=== PATIENT | male | born 1960 | race Two or more races ===

== ENCOUNTER → 2017-02-22 | Outpatient (REF) | payer OTHER ==
[2017-02-22 11:51] LABS: MEAN CORPUSCULAR HEMOGLOBIN 30.8 pg (27.0-33.0); MEAN CORPUSCULAR HGB CONC 34.2 g/dl (32.0-36.5); PLATELET COUNT, AUTOMATED 234 10^3/uL (150-450); RED CELL DISTRIBUTION WIDTH 13.7 % (11.5-14.5); WHITE BLOOD COUNT 6.8 10^3/uL (4.0-10.0)
[2017-02-22 12:29] LABS: ALBUMIN 3.7 GM/DL (3.2-5.2); ALKALINE PHOSPHATASE 59 U/L (45-117); ALT/SGPT 28 U/L (12-78); ANION GAP 5 MEQ/L (8-16); AST/SGOT 21 U/L (7-37); BILIRUBIN,TOTAL 0.6 MG/DL (0.2-1.0); BLOOD UREA NITROGEN 14 MG/DL (7-18); CALCIUM LEVEL 8.7 MG/DL (8.5-10.1); CARBON DIOXIDE LEVEL 29 MEQ/L (21-32); CHLORIDE LEVEL 106 MEQ/L (98-107); CHOLESTEROL LEVEL 208 MG/DL (<200); CREATININE FOR GFR 0.83 MG/DL (0.70-1.30); GLOMERULAR FILTRATION RATE > 60.0 (>56); GLUCOSE, FASTING 94 MG/DL (70-105); POTASSIUM SERUM 4.4 MEQ/L (3.5-5.1); SODIUM LEVEL 140 MEQ/L (136-145); TOTAL PROTEIN 7.4 GM/DL (6.4-8.2); TRIGLYCERIDES LEVEL 164 MG/DL (<150)
== END ==
LOC: M SFHCLERA 10:11
PROVIDERS: ATTEND Family Medicine
DX: Z68.41 Body mass index [BMI] 40.0-44.9, adult (principal)

== ENCOUNTER → 2018-02-01 | Outpatient (CLI) | payer SELFPAY | LOC: M OUTALCOH 08:23 | DX: Z13.9 Encounter for screening, unspecified (principal); F10.10 Alcohol abuse, uncomplicated ==

== ENCOUNTER 2018-02-19 07:56 | Outpatient (RCR) | payer SELFPAY | END 2018-03-04 | LOC: M OUTALCOH 07:56 | PROVIDERS: ATTEND Psychiatry & Neurology Psychiatry | DX: F10.10 Alcohol abuse, uncomplicated (principal); F17.200 Nicotine dependence, unspecified, uncomplicated ==

== ENCOUNTER 2018-04-02 16:00 | Outpatient (RCR) | payer OTHER, SELFPAY | END 2018-04-04 | LOC: M OUTALCOH 16:00 | PROVIDERS: ATTEND Psychiatry & Neurology Psychiatry | DX: F10.10 Alcohol abuse, uncomplicated (principal); F17.200 Nicotine dependence, unspecified, uncomplicated ==

== ENCOUNTER → 2018-05-02 | Outpatient (RCR) | payer OTHER, SELFPAY | LOC: M OUTALCOH 04-05 15:47 | PROVIDERS: ATTEND Psychiatry & Neurology Psychiatry | DX: F10.10 Alcohol abuse, uncomplicated (principal); F17.200 Nicotine dependence, unspecified, uncomplicated ==

== ENCOUNTER 2018-05-06 09:45 | Outpatient (RCR) | payer OTHER, SELFPAY | END 2018-06-02 | LOC: M OUTALCOH 09:45 | PROVIDERS: ATTEND Psychiatry & Neurology Psychiatry | DX: F10.10 Alcohol abuse, uncomplicated (principal); F17.200 Nicotine dependence, unspecified, uncomplicated ==

== ENCOUNTER → 2018-07-23 | Outpatient (CLI) | payer OTHER ==
[2018-07-23 09:07] LABS: HEMATOCRIT 49.5 % (42.0-52.0); MEAN CORPUSCULAR HEMOGLOBIN 31.9 pg (27.0-33.0); MEAN CORPUSCULAR HGB CONC 34.3 g/dl (32.0-36.5); MEAN CORPUSCULAR VOLUME 92.9 fl (80.0-96.0); PLATELET COUNT, AUTOMATED 238 10^3/uL (150-450); RED BLOOD COUNT 5.33 10^6/uL (4.30-6.10); WHITE BLOOD COUNT 6.7 10^3/uL (4.0-10.0)
[2018-07-23 09:40] LABS: ALBUMIN 3.8 GM/DL (3.2-5.2); ALT/SGPT 20 U/L (12-78); BILIRUBIN,TOTAL 0.3 MG/DL (0.2-1.0); BLOOD UREA NITROGEN 16 MG/DL (7-18); CARBON DIOXIDE LEVEL 24 MEQ/L (21-32); CHLORIDE LEVEL 109 MEQ/L (98-107); CHOLESTEROL LEVEL 239 MG/DL (<200); CHOLESTEROL RISK RATIO 3.793 (<5); CREATININE FOR GFR 0.95 MG/DL (0.70-1.30); GLOMERULAR FILTRATION RATE > 60.0 (>56); GLUCOSE, FASTING 95 MG/DL (70-100); HDL CHOLESTEROL 63 MG/DL (>40); LDL CHOLESTEROL 133 MG/DL (<100); NON-HDL-C 176 MG/DL; POTASSIUM SERUM 4.2 MEQ/L (3.5-5.1); SODIUM LEVEL 142 MEQ/L (136-145); TOTAL PROTEIN 7.3 GM/DL (6.4-8.2); TRIGLYCERIDES LEVEL 216 MG/DL (<150)
== END ==
LOC: M LAB 08:12
PROVIDERS: ATTEND Nurse Practitioner Adult Health
DX: Z00.00 Encounter for general adult medical examination without abnormal findings (principal); E78.5 Hyperlipidemia, unspecified; Z12.5 Encounter for screening for malignant neoplasm of prostate

== ENCOUNTER 2018-09-09 10:55 | Day surgery (SDC) | payer OTHER ==
[~2018-09-09] VITALS: Ht 180.3 cm; Wt 98.9 kg
[~2018-09-09 10:55] MED LIST: LIDOCAINE 1% MDV 20ML VIAL SQ PRN; LR 1,000 ML IV ONE
[2018-09-09] MEDS ORDERED: BUPIVACAINE/EPIN 0.25% 30 ML VIAL As Ordered ONE ×2 (12:01→14:59)
[2018-09-09] MEDS ORDERED: GLYCOPYRROLATE INJ 0.2 MG/ML 2 ML VIAL As Ordered ONE (12:30)
[2018-09-09] MEDS ORDERED: KETOROLAC 60 MG/2 ML VIAL (J1885) As Ordered ONE (12:38)
[2018-09-09] MEDS ORDERED: PROPOFOL 200 MG/20 ML VIAL As Ordered ONE (12:38)
[2018-09-09] MEDS ORDERED: MIDAZOLAM INJ 2 MG/2 ML VIAL (J2250) As Ordered ONE (12:38)
[2018-09-09] MEDS ORDERED: SUGAMMADEX SODIUM 500 MG/5 ML VIAL (BRIDION) As Ordered ONE (12:38)
[2018-09-09] MEDS ORDERED: fentaNYL 250 MCG/5 ML INJECTION (J3010) As Ordered ONE (12:38)
[2018-09-09] MEDS ORDERED: dexameTHASONE 4 MG/ML 1ML VIAL (J1100) As Ordered ONE (12:38)
[2018-09-09] MEDS ORDERED: ONDANSETRON 4MG/2ML VIAL (J2405) As Ordered ONE (12:38)
[2018-09-09] MEDS ORDERED: LIDOCAINE 2% INJ 100 MG/5 ML SDV (FOR ANES.) As Ordered ONE (12:38)
[2018-09-09] MEDS ORDERED: METOCLOPRAMIDE INJ 10MG/2ML VIAL (J2765) As Ordered ONE (12:38)
[2018-09-09] MEDS ORDERED: ACETAMINOPHEN 1000MG 100ML IV BTL (OFIRMEV) (J0131 PER 10MG) As Ordered ONE (12:38)
[2018-09-09] MEDS ORDERED: ROCURONIUM BROMIDE 50 MG/5 ML VIAL As Ordered ONE (12:38)
[2018-09-09] MEDS ORDERED: PERCOCET 5MG/325MG TAB As Ordered ONE (13:10)
[2018-09-09] MEDS ORDERED: fentaNYL 100 MCG/2 ML INJECTION (J3010) As Ordered ONE (13:10)
[2018-09-09] MEDS: fentaNYL 100 MCG/2 ML INJECTION (J3010) IV PRN ×2 (13:10→13:17)
[2018-09-09] MEDS ORDERED: MORPHINE 10 MG/ML 1ML VIAL (J2270) IV PRN (13:30)
[2018-09-09] MEDS ORDERED: NORCO, ANEXSIA 5/325MG TABLET (HYDROcodone/ACETAMINOPHEN) PO PRN (13:30)
[2018-09-09] MEDS ORDERED: PERCOCET 5MG/325MG TAB PO PRN (13:30)
[2018-09-09] MEDS ORDERED: ONDANSETRON 4MG/2ML VIAL (J2405) IV PRN (13:30)
[2018-09-09] MEDS ORDERED: LR 1,000 ML IV SCH (13:30)
[2018-09-09] MEDS ORDERED: METOCLOPRAMIDE INJ 10MG/2ML VIAL (J2765) IV PRN (13:30)
--- NOTE | 2018-09-09 13:36 | RO ---
DATE OF PROCEDURE: 09/09/2018 PREOPERATIVE DIAGNOSIS: Umbilical hernia. POSTOPERATIVE DIAGNOSIS: Umbilical hernia. PROCEDURE: Laparoscopic umbilical hernia repair. SURGEON: Dr. Saldana MANAGER FORMS: None. ANESTHESIA: General. ESTIMATED BLOOD LOSS: 5. COMPLICATIONS: None. INDICATIONS FOR PROCEDURE: The patient is a 58-year-old male who presents with pain and a lump at the umbilicus found to have umbilical hernia. Recommendation is to proceed with laparoscopic repair. Risks and benefits the procedure not limited but including bleeding, infection, hernia formation, hernia recurrence, damage to surrounding structures, need for further surgery were discussed in detail with the patient. Informed consent was obtained and procedure was planned. DESCRIPTION OF PROCEDURE: The patient brought back to operating room #3. After sufficient sedation, the abdomen was sterilely prepped and draped. Next, time-out was done to confirm proper patient and proper procedure. Following that a 5 mm incision made in left lower quadrant. Veress needle inserted and the abdomen was insufflated to 50 mmHg. Next, the Veress needle was removed and a 5 mm Optiview port was used to gain access to the abdomen. Once the abdomen was entered, an umbilical hernia was identified. Another 5 mm port was placed in the left lower quadrant. Next, using Enseal the omentum that was adhered into the hernial sac was removed. Next, the preperitoneal space was entered using the Enseal and dissected free along with the hernia sac. Once this was all completed, a Parietex composite mesh and a Vicryl suture was placed in all four corners, placed inside the abdomen. Transfascial sutures were brought out through the abdominal wall using Matt-Watts needle and tied in place. Then, two rows SecureStrap tacks were placed around the perimeter of mesh to hold it in place. Once this was completed, the abdomen was desufflated. Skin incisions were closed #4-0 Vicryl subcuticular sutures. The abdomen was cleaned and dried. Steri-Strips, 4 x 4, and tape were applied thus ending procedure.
[2018-09-09 15:01] VITALS: BP 140/72
== END 2018-09-09 15:15 | disposition home or self-care (01) ==
LOC: M SDC 10:55
PROVIDERS: ATTEND Surgery
DX: K42.9 Umbilical hernia without obstruction or gangrene (principal); F17.210 Nicotine dependence, cigarettes, uncomplicated; Z79.899 Other long term (current) drug therapy
CPT/HCPCS: 49652; C1781; J0131; J0690; J1100; J1885; J2250; J2405; J2765; J3010

== ENCOUNTER → 2018-09-16 | Outpatient (CLI) | payer OTHER ==
--- NOTE | 2018-09-16 17:11 | REP ---
CT chest without contrast: Low-dose screening exam. History: Tobacco use. No comparison study. CT findings: There is a 3 mm perifissural nodule along the major fissure in the left lower lobe on page 55 of 116 in today's study. A subpleural 3 mm nodule is also visible posteriorly in the right upper lobe seen on page 29. No other significant pulmonary nodule is appreciated. Impression: Lung RADS category II benign findings. Repeat screening exam suggested in 1 year. Electronically Signed by Alan Sotomayor MD 09/17/2018 07:45 A
== END ==
LOC: M RAD 14:59
PROVIDERS: ATTEND Internal Medicine
DX: R91.1 Solitary pulmonary nodule (principal); F17.200 Nicotine dependence, unspecified, uncomplicated

== ENCOUNTER 2019-05-26 19:56 | Emergency (ER) | payer OTHER, SELFPAY ==
[~2019-05-26] VITALS: Ht 177.8 cm; Wt 90.0 kg
--- NOTE | 2019-05-26 21:21 | REPVR ---
PROCEDURE INFORMATION: Exam: US Scrotum Exam date and time: 05/26/2019 9:04 PM Age: 59 years old Clinical indication: Scrotum pain; Additional info: Right testicular pain TECHNIQUE: Imaging protocol: Real-time ultrasound of the scrotum and contents with color Doppler and image documentation. COMPARISON: No relevant prior studies available. FINDINGS: Right testicle: Measures 4.0 x 2.2 x 3.3 cm. Right testicle is hypervascular. Testicular echotexture is very heterogeneous with several ill-defined hypoechoic areas. Left testicle: Measures 4.3 x 2.5 x 3.2 cm. 5 mm cyst in the central testicle. No solid masses are seen. Otherwise normal echotexture and morphology. Normal intra testicular blood flow. Epididymides: Right epididymis is enlarged and hypervascular. No masses are seen in the right epididymis. Small simple cysts measuring 1 mm and 2 mm are noted in the left epididymal head. Left epididymis is otherwise unremarkable. Scrotum: No mass, hydrocele, or varicocele. IMPRESSION: 1. Enlarged hyperemic right epididymis and hyperemic, heterogeneous right testicle suggesting epididymo-orchitis. Short-term follow-up is suggested to exclude other neoplastic or infiltrative process in the right testicle. 2. Small simple cyst in the left testicle. 3. No evidence of testicular torsion. Electronically signed by: Car Velasquez On 05/26/2019 21:21:14 PM
[2019-05-26] MEDS ORDERED: LEVA1TAB2 PO (21:54)
[2019-05-26] MEDS ORDERED: LevoFLOXacin 500 MG TABLET PO ONE (22:00)
[2019-05-26 22:06] VITALS: BP 156/82
--- NOTE | 2019-05-27 07:58 | REP ---
Clinical: Right groin pain. Technique: Single supine view of the abdomen and pelvis. Findings: The bowel gas pattern is nonspecific. There is a 3 x 8 mm calcification overlying the right psoas muscle just above the right L3 spinous process which is nonspecific but raise the possibility of ureteral stone. Skeletal structures are intact. Impression: 1. Nonspecific bowel gas pattern. 2. Possible 8 mm right ureteral calculus. Electronically Signed by Emigdio Galo MD 05/27/2019 07:50 A
--- NOTE | 2019-05-27 15:43 | ED PDOC ---
Post-Departure Follow-Up cole mercedes faxed formal read of scrotal us for fu Diana Álvarez MD May 27, 2019 15:43
== END 2019-05-26 22:07 | disposition home or self-care (01) ==
LOC: M ED 19:56
DX: N45.1 Epididymitis (principal); N45.2 Orchitis; N44.2 Benign cyst of testis; F12.10 Cannabis abuse, uncomplicated

== ENCOUNTER 2019-11-01 11:44 | Emergency (ER) | payer SELFPAY ==
[~2019-11-01] VITALS: Ht 177.8 cm; Wt 103.3 kg
[~2019-11-01 11:44] MED LIST changes: +LEVA1TAB2 PO; -LIDOCAINE 1% MDV 20ML VIAL SQ PRN; -LR 1,000 ML IV ONE
[2019-11-01] MEDS ORDERED: MORPHINE 4 MG/ML 1ML VIAL/SYRINGE (J2270) IV ONE (12:15)
[2019-11-01 12:31] LABS: BASO # 0.1 10^3/uL (0.0-0.2); BASO % 0.8 % (0.0-1.0); EOS # 0.2 10^3/uL (0.0-0.5); EOS % 1.8 % (0.0-3.0); HEMATOCRIT 48.6 % (42.0-52.0); HEMOGLOBIN 17.2 g/dl (13.5-17.5); LYMPH # 1.7 10^3/uL (1.5-5.0); LYMPH % 14.8 % (24.0-44.0); MEAN CORPUSCULAR HEMOGLOBIN 32.5 pg (27.0-33.0); MEAN CORPUSCULAR HGB CONC 35.4 g/dl (32.0-36.5); MEAN CORPUSCULAR VOLUME 91.9 fl (80.0-96.0); MONO # 0.9 10^3/uL (0.0-0.8); MONO % 7.7 % (0.0-5.0); NEUTROPHILS # 8.7 10^3/uL (1.5-8.5); NEUTROPHILS % 74.2 % (36.0-66.0); PLATELET COUNT, AUTOMATED 256 10^3/uL (150-450); RED BLOOD COUNT 5.29 10^6/uL (4.30-6.10); WHITE BLOOD COUNT 11.8 10^3/uL (4.0-10.0)
[2019-11-01 13:01] LABS: BLOOD UREA NITROGEN 15 MG/DL (7-18); CALCIUM LEVEL 9.4 MG/DL (8.5-10.1); CARBON DIOXIDE LEVEL 26 MEQ/L (21-32); CHLORIDE LEVEL 110 MEQ/L (98-107); CREATININE FOR GFR 1.24 MG/DL (0.70-1.30); GLOMERULAR FILTRATION RATE > 60.0 (>56); GLUCOSE, FASTING 102 MG/DL (70-100); POTASSIUM SERUM 3.9 MEQ/L (3.5-5.1); SODIUM LEVEL 143 MEQ/L (136-145)
[2019-11-01] MEDS ORDERED: KETOROLAC 30 MG/ML 1ML VIAL IV ONE (13:45)
[2019-11-01] MEDS ORDERED: KETO10TAB PO (15:20)
[2019-11-01] MEDS ORDERED: PERC5TAB12 PO (15:20)
[2019-11-01] MEDS ORDERED: CIPR-249 PO (15:20)
[2019-11-01 15:34] VITALS: BP 150/80
--- NOTE | 2019-11-28 13:40 | REP ---
SCROTAL ULTRASOUND CLINICAL: Scrotal pain. TECHNIQUE: Real-time perez scale and color Doppler evaluation using linear high frequency transducer. COMPARISON: 05/26/2019. FINDINGS: The right testicle and epididymis demonstrates subtle heterogeneity with normal vascularity likely related to prior epididymitis/orchitis as per findings on 05/26/2019. No right-sided hydrocele or varicocele. Right testicle measures 4.2 x 2.0 x 3.4 cm. The left testicle is normal in appearance and vascularity and measures 4.1 x 2.6 x 2.9 cm and includes 4-mm simple appearing, stable, benign intratesticular cyst and two small epididymal cysts measuring approximately 6 and 4 mm. A small left- sided hydrocele is again noted and similar to prior examination. IMPRESSION: * Right testicular changes likely related to resolved prior epididymitis/orchitis. * Stable left benign appearing intratesticular and epididymal cysts. * No acute scrotal pathology appreciated. [facility]
--- NOTE | 2019-11-28 13:41 | REP ---
NONCONTRAST CT OF THE ABDOMEN AND PELVIS CLINICAL: Right flank pain. TECHNIQUE: Axial noncontrast images from the lung bases to the pubic symphysis with coronal and sagittal reformations. FINDINGS: Moderate acute right-sided obstructive uropathy including edematous enlargement to the right kidney, moderate perinephric stranding, and hydronephrosis along with proximal hydroureter secondary to an obstructing 8 mm calculus in the proximal right ureter (images 71, 73). No further right intrarenal calculi. Left kidney/ureter and bladder appear normal. Liver, spleen, pancreas, gallbladder, and bilateral adrenal glands are normal. The enteric system is without obstruction or acute inflammatory process. Normal terminal ileum and appendix identified in the right lower quadrant. Pelvis demonstrates normal bladder and age-appropriate prostate/seminal vesicles. No ascites. No free air. No adenopathy. Abdominal aorta normal. Musculoskeletal structures intact. Lung bases clear. IMPRESSION: Moderate acute right-sided obstructive uropathy with 8 mm calculus obstructing the proximal right ureter. [facility]
== END 2019-11-01 15:36 | disposition home or self-care (01) ==
LOC: M ED 11:44
DX: N20.1 Calculus of ureter (principal); M54.9 Dorsalgia, unspecified; F17.200 Nicotine dependence, unspecified, uncomplicated
CPT/HCPCS: 36415; 74176; 76870; 80048; 81001; 85025; 93976; 96374; 99284; J1885

== ENCOUNTER → 2020-07-14 | Outpatient (REF) | payer OTHER ==
[~2020-07-14] MED LIST changes: +CIPR-249 PO; +KETO10TAB PO; +PERC5TAB12 PO
[2020-07-14 13:10] LABS: HEMOGLOBIN A1c 5.1 %
[2020-07-14 13:51] LABS: ALBUMIN 3.7 GM/DL (3.2-5.2); ALT/SGPT 24 U/L (12-78); BILIRUBIN,TOTAL 0.4 MG/DL (0.2-1.0); BLOOD UREA NITROGEN 15 MG/DL (7-18); CALCIUM LEVEL 9.1 MG/DL (8.8-10.2); CARBON DIOXIDE LEVEL 27 MEQ/L (21-32); CHLORIDE LEVEL 109 MEQ/L (98-107); CHOLESTEROL LEVEL 218 MG/DL (<200); CHOLESTEROL RISK RATIO 4.037 (<5); CREATININE FOR GFR 0.84 MG/DL (0.70-1.30); GLOMERULAR FILTRATION RATE > 60.0 (>49); GLUCOSE, FASTING 86 MG/DL (70-100); HDL CHOLESTEROL 54 MG/DL (>40); LDL CHOLESTEROL 96 MG/DL (<100); NON-HDL-C 164 MG/DL; POTASSIUM SERUM 4.6 MEQ/L (3.5-5.1); SODIUM LEVEL 142 MEQ/L (136-145); TOTAL PROTEIN 6.9 GM/DL (6.4-8.2); TRIGLYCERIDES LEVEL 338 MG/DL (<150)
== END ==
LOC: M SFHCPLAZ 08:30 → M SFHCADAM 08:35
PROVIDERS: ATTEND Nurse Practitioner Adult Health
DX: Z13.1 Encounter for screening for diabetes mellitus (principal); I10 Essential (primary) hypertension; E78.5 Hyperlipidemia, unspecified

== ENCOUNTER → 2020-07-14 | Outpatient (CLI) | payer OTHER ==
--- NOTE | 2020-07-14 10:11 | REP ---
INDICATION: LUMBAR PAIN COMPARISON: None. TECHNIQUE: AP, lateral, bilateral oblique, and coned-down views of the lumbar spine. FINDINGS: Alignment and lordosis maintained. Vertebral bodies are intact. No acute fracture/compression injury or subluxation. Moderate degenerative changes include endplate sclerosis with marginal spurring and hypertrophic facet changes primarily involving L2-3 through L5-S1. IMPRESSION: Moderate multilevel degenerative changes <Electronically signed by Emigdio Galo > 07/14/20 [id number]
--- NOTE | 2020-07-14 10:13 | REP ---
INDICATION: NECK PAIN. COMPARISON: None. TECHNIQUE: AP, lateral, flexion/extension, bilateral oblique, swimmer's and open-mouth views of the cervical spine FINDINGS: Alignment is maintained. Advanced multilevel degenerative changes include endplate sclerosis, disc space narrowing, osteophytosis and facet hypertrophy. Findings are most pronounced at the C3-4 and C5-6 levels. No acute fracture or dislocation. Open mouth view demonstrates normal C1-C2 articulation and odontoid process. IMPRESSION: Advanced multilevel degenerative spondylosis. <Electronically signed by Emigdio Galo > 07/14/20 [id number]
== END ==
LOC: M ADAMS 08:38
PROVIDERS: ATTEND Nurse Practitioner Adult Health
DX: M54.2 Cervicalgia (principal); M54.5 Low back pain

== ENCOUNTER 2020-07-20 10:42 | Inpatient (IN) | payer OTHER ==
[~2020-07-20] VITALS: Ht 177.8 cm; Wt 102.0 kg
[2020-07-20] MEDS ORDERED: VALS40TA9 PO (10:53)
--- NOTE | 2020-07-20 11:19 | REP ---
INDICATION: slurred speech, unilateral weakness. COMPARISON: None. TECHNIQUE: Helical scanning is acquired. 5 mm axial images were reformatted. Coronal MPR images were generated. 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 Bony calvarium is intact. There are mild mucosal thickening changes in the ethmoid air cells and maxillary sinuses bilaterally consistent with mild paranasal sinus disease. Vascular calcification is observed in the distal internal carotid arteries bilaterally. There is no evidence of intracranial hemorrhage. Lateral, 3rd, and 4th ventricles are normal in size and position. There are bilateral foci of periventricular white matter low-density in the frontal lobes and in the right parietal lobe. There is a low-density area involving the basal ganglia on the left. These are nonspecific. They may reflect chronic microvascular changes versus demyelinating foci versus is subacute lacunar infarction. Consider MRI scanning for further evaluation. No extra-axial fluid collection, mass, or midline shift is seen. IMPRESSION: Multifocal white matter low-density lesions, nonspecific as above. Consider further evaluation with MRI scanning. Paranasal sinus mucosal changes are also noted.. <Electronically signed by Kevin Sotomayor > 07/20/20 2351
[2020-07-20 12:19] LABS: HEMATOCRIT 49.3 % (42.0-52.0); HEMOGLOBIN 17.3 g/dl (13.5-17.5); MEAN CORPUSCULAR HGB CONC 35.1 g/dl (32.0-36.5); MEAN CORPUSCULAR VOLUME 94.1 fl (80.0-96.0); PLATELET COUNT, AUTOMATED 217 10^3/uL (150-450); RED BLOOD COUNT 5.24 10^6/uL (4.30-6.10); WHITE BLOOD COUNT 8.4 10^3/uL (4.0-10.0)
--- NOTE | 2020-07-20 12:26 | REP ---
INDICATION: CVA. COMPARISON: None. TECHNIQUE: Single portable AP view of the chest was performed. FINDINGS: There is no acute infiltrate or pulmonary edema. Lungs are clear. The heart is not significantly enlarged. The mediastinal silhouette is unremarkable. The visualized osseous structures are intact. IMPRESSION: No acute pulmonary disease. <Electronically signed by Jair Escobar > 07/20/20 [id number]
[2020-07-20 12:44] LABS: BLOOD UREA NITROGEN 14 MG/DL (7-18); CALCIUM LEVEL 9.1 MG/DL (8.8-10.2); CARBON DIOXIDE LEVEL 26 MEQ/L (21-32); CHLORIDE LEVEL 110 MEQ/L (98-107); CK-MB VALUE MASS < 1.0 NG/ML (<3.6); CPK CREATINE PHOSPHOKINASE 112 U/L (39-308); CREATININE FOR GFR 0.87 MG/DL (0.70-1.30); GLOMERULAR FILTRATION RATE > 60.0 (>49); GLUCOSE, FASTING 106 MG/DL (70-100); MB/CK RELATIVE INDEX 0.89 (< OR =4); POTASSIUM SERUM 4.2 MEQ/L (3.5-5.1); SODIUM LEVEL 141 MEQ/L (136-145); TROPONIN I < 0.02 NG/ML (< 0.10)
[2020-07-20 15:40] VITALS: BP 137/92
[2020-07-20] MEDS ORDERED: NICOTINE 21MG/24HR 1 EA TRANSDERMAL TD PRN (17:15)
[2020-07-20] MEDS ORDERED: ASPIRIN 81MG ENTERIC TABLET PO ONE (17:30)
[2020-07-20] MEDS ORDERED: ACETAMINOPHEN 500 MG TAB PO ONE (17:30)
--- NOTE | 2020-07-20 19:06 | HPEPDOC ---
General Date of Admission 07/20/20 Date of Service: July 20, 2020 Chief Complaint The patient is a 60-year-old male admitted with a reason for visit of Rt Side Pain/Numbness. Source: Patient, RN/MD History of Present Illness 60-year-old male with them, history of alcohol abuse and tobacco abuse, presented to the emergency room with persistent right-sided weakness which start ed on July 19 about 4 PM associated with the numbness and the right angle of the mouth and also headache. Patient reports that initially at about 4 PM both his right and left lower extremities suddenly became very weak and he could not stand up or walk. The left weakness lasted for about 5 minutes, but the right leg weakness lasted for about an hour, then it got a little better. However, at the right leg weakness came back at about 9 PM the stem also associated with headache and right upper extremity weakness and numbness of the right angle of the mouth. He went to bed thinking it would get better. However, at around 2 AM when he woke up to go to the bathroom, he realized that he couldn't walk. He had to crawl to the bathroom. He woke up this morning with persistent right-sided weakness and inability to walk, so came to the emergency room. . He also complains of daily headaches which she says is up. Part of his life so he doesn't pay much attention to it and when it is very severe he sees flashes of light at the periphery of the visual field Since yesterday, he has been having a headache, but it is not very bad as some of his others.. He was admitted for evaluation for off Cerebrovascular accident. Patient also reports that over the past year he has noticed episodes of sudden weakness of both of his lower extremities, which will last usually from a few seconds to one or 2 minutes and then get better by itself. He is in heavy alcohol drinker and admits to drinking a pint of whiskey a in 2 days. Home Medications Scheduled Valsartan (Valsartan) 40 Mg Tablet, 40 MG PO QHS, (Reported) Allergies Coded Allergies: No Known Allergies (Unverified , 05/26/19) Past Medical History Medical History PNEUMONIA X2 1999 FELL OFF A 40 FOOT EXTENSION LADDER BROKE ALL THE BONES IN HIS HANDS, HIT HIS HEAD, AND RIPPED MUSCLES ON HIS SIDE. 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 ) Drugs: denies A-FIB/CHADSVASC A-FIB History Current/History of A-Fib/PAF?: No Review of Systems Constitutional: Denies: Chills, Fever, Night Sweats Eyes: Denies: Pain, Vision change ENT: Reports: Head Aches; Denies: Dysphagia Skin: Denies: Rash, Lesions, Breakdown Pulmonary: Denies: Dyspnea, Cough Cardiovascular: Denies: Chest Pain, Palpitations, Orthopnea, Paroxysmal Noc. Dyspnea, Lt Headedness Gastrointestinal: Denies: Nausea, Vomiting, Abdominal Pain, Diarrhea Genitourinary: Denies: Dysuria, Frequency, Incontinence, Retention Neurological: Reports: Weakness, Numbness; Denies: Change in speech Physical Examination General Exam: Positive: Alert, Cooperative, No Acute Distress Eye Exam: Positive: PERRLA, Conjunctiva & lids normal, EOMI; Negative: Sclera icteric Neck Exam: Positive: Supple; Negative: JVD, thyromegaly Chest Exam: Positive: Clear to auscultation, Normal air movement Heart Exam: Positive: Bradycardic, Regular Rhythm, Normal S1, Normal S2; Negative: Murmurs, Rubs Telemetry: Positive: Sinus, Bradycardia Abdomen Exam: Positive: Normal bowel sounds, Soft; Negative: Tenderness, Hepatospenomegaly Extremity Exam: Negative: Clubbing, Cyanosis, Edema Neuro Exam: Positive: Normal Speech, Normal Tone (3/5 in right lower ex, 5/5 int eh left lower ex, 5/5 int he left upper ex, 3/5 inthe right upper extremit y.) Psych Exam: Positive: Memory Intact, Oriented x 3 Vital Signs Vital Signs Date Time Temp Pulse Resp B/P (MAP) Pulse Ox O2 Delivery O2 Flow Rate FiO2 07/20/20 13:00 125/71 (89) 07/20/20 12:45 51 16 95 Room Air 07/20/20 10:43 97.5 Laboratory Data Labs 24H Laboratory Tests 2 07/20/20 12:04: Nucleated Red Blood Cells % (auto) 0.0, Anion Gap 5L, Glomerular Filtration Rate > 60.0, Calcium Level 9.1, Total Creatine Kinase 112, Creatine Kinase MB < 1.0, Creatine Kinase MB Relative Index 0.89, Troponin I < 0.02 CBC/BMP Laboratory Tests 07/20/20 12:04 Microbiology Microbiology 07/20/20 Respiratory Virus Panel (PCR) ([facility]), Received Pending Assessment/Plan 60-year-old male with them, history of alcohol abuse and tobacco abuse, presented to the emergency room with persistent right-sided weakness which started on July 19 about 4 PM associated with the numbness and the right angle of the mouth and also headache. Patient reports that initially at about 4 PM both his right and left lower extremities suddenly became very weak and he could not stand up or walk. The left weakness lasted for about 5 minutes, but the right leg weakness lasted for about an hour, then it got a little better. However, the right leg weakness came back at about 9 PM this time associated with headache and right upper extremity weakness and numbness of the right angle of the mouth. He also complained of persistent headache. He was admitted for evaluation for off Cerebrovascular accident vs complicated migraine. Right-sided weakness CVA versus complicated migraine With persistent right-sided weakness and abnormal CT head Mitigated. MRI and MRA of brain. Was started on aspirin and Lipitor Will allow for permissive hypertension Hold valsartan Persistent and recurrent headaches Could be migraine Will give Tylenol and ibuprofen History of intermittent bilateral leg weakness Will get MRI of cervical spine Hypertriglyceridemia Started on atorvastatin Alcohol abuse Will watch for alcohol withdrawal Tobacco Abuse Nicotine patch Plan / VTE VTE Prophylaxis Ordered?: Yes SHAMIR MOROCHO MD July 20, 2020 13:31
[2020-07-20 20:00] VITALS: BP 134/91
--- NOTE | 2020-07-20 20:48 | ECGEPIP ---
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
[2020-07-20] MEDS ORDERED: IBUPROFEN 800 MG TAB PO SCH (21:00)
[2020-07-20] MEDS: ATORVASTATIN 20 MG TAB PO SCH (21:29)
[2020-07-20] MEDS: DOCUSATE SODIUM 100MG CAPSULE PO SCH (21:29)
--- NOTE | 2020-07-20 22:08 | REPVR ---
PROCEDURE INFORMATION: Exam: MR Head Without Contrast Exam date and time: 07/20/2020 8:38 PM Age: 60 years old Clinical indication: Walking, difficulty and weakness, extremity; Left; Patient HX: Lt sided weakness, difficulty walking; Additional info: Bilateral neuro symptoms, abn TECHNIQUE: Imaging protocol: MR of the head without contrast. COMPARISON: CT Head without contrast 07/20/2020 11:07 AM FINDINGS: Brain: Multiple foci of restricted diffusion are identified within the left basal ganglia and henderson radiata, consistent with acute infarcts. Additional foci of diffusion hyperintensity are noted within the left frontal lobe, consistent with acute or subacute infarcts. There is a focus of magnetic susceptibility associated with a left henderson radiata infarct concerning for hemorrhagic conversion. No acute hemorrhage is identified in this region on recent head CT images. There is an additional tiny focus of magnetic susceptibility blood products/hemosiderin within the right posterior frontal lobe. Several small chronic lacunar infarcts are visualized within the right cerebral white matter. There are scattered additional foci of FLAIR hyperintensity within the cerebral white matter. There is no mass effect or restricted diffusion associated with these foci. In a patient this age, this likely represents chronic small vessel ischemic disease. There is mild prominence of sulci, compatible with atrophy. For discussion of the intracranial arteries, refer to the MRA brain report. Cerebral ventricles: Asymmetry of the lateral ventricles, without hydrocephalus. Bones/joints: Unremarkable, as visualized. Paranasal sinuses: Mucosal thickening/effusions involving the maxillary sinuses, left side greater than right. Mucosal thickening of scattered ethmoid air cells, with minimal mucosal thickening of the frontal sinuses. Mastoid air cells: Mild effusions within right mastoid air cells. Minimal mucosal thickening/effusions within left mastoid air cells. Orbital cavity: Unremarkable. Soft tissues: Unremarkable, as visualized. IMPRESSION: 1. Multiple foci of restricted diffusion are identified within the left basal ganglia and henderson radiata, consistent with acute infarcts. Additional foci of diffusion hyperintensity are noted within the left frontal lobe, consistent with acute or subacute infarcts. 2. There is a focus of magnetic susceptibility associated with a left henderson radiata infarct concerning for hemorrhagic conversion. No acute hemorrhage is identified in this region on recent head CT images. 3. Several small chronic lacunar infarcts are visualized within the right cerebral white matter. 4. Mild additional white matter disease, likely representing chronic small vessel ischemic disease. 5. Mild atrophy. 6. Paranasal sinus disease. 7. Additional findings described above. Electronically signed by: Lester Nunez On 07/20/2020 22:07:05 PM
--- NOTE | 2020-07-20 22:22 | REPVR ---
PROCEDURE INFORMATION: Exam: MRA Head Without Contrast; Arteriography Exam date and time: 07/20/2020 8:38 PM Age: 60 years old Clinical indication: Patient HX: Lt sided weakness, difficulty walking; Additional info: Stroke TECHNIQUE: Imaging protocol: Magnetic resonance angiography head without contrast. Exam focused on the arteries. COMPARISON: CT Head without contrast 07/20/2020 11:07 AM FINDINGS: ANTERIOR CIRCULATION: Right internal carotid artery: Intracranial segment is patent with no significant stenosis. No aneurysm. Right middle cerebral artery: There is nonvisualization of the right middle cerebral artery, consistent with occlusion. Collateral vessels are identified adjacent to the region of the M1 segment. Right anterior cerebral artery: No occlusion or significant stenosis. No aneurysm. Left internal carotid artery: Intracranial segment is patent with no significant stenosis. No aneurysm. Left middle cerebral artery: Severe stenoses of M1 and M2 segments of the left middle cerebral artery, with near occlusion. Left anterior cerebral artery: No occlusion or significant stenosis. No aneurysm. POSTERIOR CIRCULATION: Right vertebral artery: A dominant right vertebral artery is identified. No significant stenosis or occlusion of the right vertebral artery, as visualized. Left vertebral artery: Severe stenosis of the distal left vertebral artery. Basilar artery: No occlusion or significant stenosis. No aneurysm. Right posterior cerebral artery: Mild stenoses involving the P2 segment of the right posterior cerebral artery. No aneurysm. Left posterior cerebral artery: Mild stenosis of the P2 segment of the left posterior cerebral artery. No aneurysm. IMPRESSION: 1. Occlusion of the right middle cerebral artery. Collateral vessels are identified adjacent to the region of the M1 segment. 2. Severe stenoses of M1 and M2 segments of the left middle cerebral artery, with near occlusion. 3. Severe stenosis of the distal left vertebral artery. 4. Bilateral BASS SINGER stenoses. 5. A dominant right vertebral artery is identified. Electronically signed by: Lester Nunez On 07/20/2020 22:22:11 PM
--- NOTE | 2020-07-20 22:41 | REPVR ---
PROCEDURE INFORMATION: Exam: MR Cervical Spine Without Contrast Exam date and time: 07/20/2020 8:38 PM Age: 60 years old Clinical indication: Patient HX: Lt sided weakness, difficulty walking; Additional info: Bilateral neuro symptoms, abn CT R/O ms TECHNIQUE: Imaging protocol: Multiplanar magnetic resonance images of the cervical spine without contrast. COMPARISON: DX SPINE CERVICAL COMPL 07/14/2020 8:26 AM FINDINGS: Vertebrae: The cervical vertebral bodies are normal in height. Slight reversal of the lordotic curvature of the cervical spine. Mild retrolisthesis of C3 on C4. Spinal cord: Motion artifact limits evaluation of the cervical spinal cord, without definitive cervical spine edema. This limits evaluation for intramedullary lesions, although an intramedullary lesion is not well-defined. Multilevel findings: Degenerative disc disease is noted at multiple cervical levels, with disc bulge/osteophyte complexes. C2-C3: There is no significant narrowing of the thecal sac or neural foramina. C3-C4: There is a mild decrease in disc height at C3-C4. Edema is identified within the C3-C4 disc and adjacent bone marrow. The endplates appear intact. These findings are likely reactive to degenerative change. Infection is within the differential. Disc bulging visualized, with mild spinal canal stenosis. Moderate bilateral neural foraminal narrowing, with uncovertebral hypertrophy. C4-C5: Disc bulging visualized, with minimal spinal canal stenosis. Mild right and moderate left neural foraminal narrowing, with uncovertebral hypertrophy. C5-C6: Disc bulging visualized, with minimal to mild spinal canal stenosis. Mild bilateral neural foraminal narrowing, with uncovertebral hypertrophy. C6-C7: No significant spinal canal stenosis. Suggested small perineural cysts within the neural foramina. C7-T1: There is no significant narrowing of the thecal sac or neural foramina. Soft tissues: No significant prevertebral soft tissue swelling. Vertebral arteries: Expected flow voids in the vertebral arteries. IMPRESSION: 1. Slight reversal of the lordotic curvature of the cervical spine. Mild retrolisthesis of C3 on C4. 2. Motion artifact limits evaluation for intramedullary lesions, although an intramedullary lesion is not well-defined. 3. Degenerative changes are noted at multiple cervical levels, as described above. 4. Edema is identified within the C3-C4 disc and adjacent bone marrow. These findings are likely reactive to degenerative change. Infection is within the differential. Clinical correlation recommended. 5. Mild spinal canal stenosis at C3-C4, with minimal to mild spinal canal stenosis at C5-C6, and minimal spinal canal stenosis at C4-C5. 6. Neural foraminal narrowing visualized from C3-C4 through C5-C6. 7. Additional findings described above. Electronically signed by: Lester Nunez On 07/20/2020 22:40:44 PM
--- NOTE | 2020-07-20 23:28 | IPNPDOC ---
Text Note Date of Service The patient was seen on 07/20/20. NOTE I discussed the findings of "... a left henderson radiata infarct concerning for hemorrhagic conversion" on MRI of the brain that were not see on CT of the brain with . We will dc the ASA, Lovenox and Ibuprofen, and repeat the CT of the head in the morning and ask the day time hospitalist to follow up on the results prior to deciding whether to resume the blood thinners. VS,Fishbone, I+O VS, Fishbone, I+O Laboratory Tests 07/20/20 12:04 Vital Signs Date Time Temp Pulse Resp B/P (MAP) Pulse Ox O2 Delivery O2 Flow Rate FiO2 07/20/20 20:00 96.9 62 18 134/91 (105) 94 Room Air HILARY DELEON MD July 20, 2020 23:28
[2020-07-21] VITALS: BP 124/60
[2020-07-21 04:00] VITALS: BP 131/68
[2020-07-21 05:44] LABS: BASO # 0.1 10^3/uL (0.0-0.2); BASO % 0.7 % (0.0-1.0); EOS # 0.3 10^3/uL (0.0-0.5); EOS % 4.6 % (0.0-3.0); HEMOGLOBIN 16.2 g/dl (13.5-17.5); LYMPH # 2.3 10^3/uL (1.5-5.0); LYMPH % 32.4 % (24.0-44.0); MEAN CORPUSCULAR HEMOGLOBIN 31.9 pg (27.0-33.0); MEAN CORPUSCULAR HGB CONC 33.8 g/dl (32.0-36.5); MEAN CORPUSCULAR VOLUME 94.5 fl (80.0-96.0); MONO # 0.7 10^3/uL (0.0-0.8); MONO % 10.4 % (2.0-8.0); NEUTROPHILS # 3.6 10^3/uL (1.5-8.5); NEUTROPHILS % 51.1 % (36.0-66.0); PLATELET COUNT, AUTOMATED 196 10^3/uL (150-450); RED BLOOD COUNT 5.08 10^6/uL (4.30-6.10); WHITE BLOOD COUNT 7.1 10^3/uL (4.0-10.0)
[2020-07-21 06:11] LABS: BLOOD UREA NITROGEN 17 MG/DL (7-18); CALCIUM LEVEL 8.5 MG/DL (8.8-10.2); CARBON DIOXIDE LEVEL 27 MEQ/L (21-32); CHLORIDE LEVEL 111 MEQ/L (98-107); CHOLESTEROL LEVEL 191 MG/DL (<200); CHOLESTEROL RISK RATIO 4.547 (<5); CREATININE FOR GFR 0.92 MG/DL (0.70-1.30); GLOMERULAR FILTRATION RATE > 60.0 (>49); GLUCOSE, FASTING 100 MG/DL (70-100); HDL CHOLESTEROL 42 MG/DL (>40); LDL CHOLESTEROL 110 MG/DL (<100); NON-HDL-C 149 MG/DL; SODIUM LEVEL 142 MEQ/L (136-145); TRIGLYCERIDES LEVEL 196 MG/DL (<150)
--- NOTE | 2020-07-21 06:22 | REPVR ---
PROCEDURE INFORMATION: Exam: CT Head Without Contrast Exam date and time: 07/21/2020 7:00 AM Age: 60 years old Clinical indication: Other: F/u; Additional info: F/u on possible hemorrhagic conversion TECHNIQUE: Imaging protocol: Computed tomography of the head without contrast. Radiation optimization: All CT scans at this facility use at least one of these dose optimization techniques: automated exposure control; mA and/or kV adjustment per patient size (includes targeted exams where dose is matched to clinical indication); or iterative reconstruction. COMPARISON: 1. CT Head without contrast 2020-07-20 11:07 2. MRI-Brain without Contrast 2020-07-20 20:25 FINDINGS: Brain: Recently identified acute infarcts on the MRI are very difficult to identify by CT on this study. Unchanged left anterior basal ganglia large lacunar infarct. Cerebral ventricles: No ventriculomegaly. Bones/joints: Unremarkable. No acute fracture. Paranasal sinuses: Visualized sinuses are unremarkable. No fluid levels. Mastoid air cells: Visualized mastoid air cells are well aerated. Soft tissues: Unremarkable. IMPRESSION: 1. No visualized hemorrhage. 2. Recently identified acute infarcts on the MRI are very difficult to identify by CT on this study. Electronically signed by: Willy England On 07/21/2020 06:22:08 AM
[2020-07-21] MEDS ORDERED: ACETAMINOPHEN TAB 650MG DOSE (2X325MG) PO PRN (07:30)
[2020-07-21 08:00] VITALS: BP 146/86
[2020-07-21] MEDS: ASPIRIN 81MG ENTERIC TABLET PO SCH (08:11)
[2020-07-21] MEDS: DOCUSATE SODIUM 100MG CAPSULE PO SCH ×2 (08:11→21:39)
[2020-07-21] MEDS ORDERED: ENOXAPARIN 40MG/0.4ML SYRINGE (J1650 PER 10MG) SC SCH (09:00)
[2020-07-21] MEDS ORDERED: ASPIRIN 81MG ENTERIC TABLET PO SCH (09:00)
--- NOTE | 2020-07-21 10:51 | IPNPDOC ---
Subjective Date Seen The patient was seen on 07/21/20. Subjective Chief Complaint/HPI Patient reports that the weakness on the right is a little better. Objective Physical Examination General Exam: Positive: Alert, Cooperative, No Acute Distress Eye Exam: Positive: PERRLA, Conjunctiva & lids normal, EOMI; Negative: Sclera icteric Neck Exam: Positive: Supple; Negative: JVD, thyromegaly Chest Exam: Positive: Clear to auscultation, Normal air movement Heart Exam: Positive: Bradycardic, Regular Rhythm, Normal S1, Normal S2; Negative: Murmurs, Rubs Telemetry: Positive: Sinus, Bradycardia Abdomen Exam: Positive: Normal bowel sounds, Soft; Negative: Tenderness, Hepatospenomegaly Extremity Exam: Negative: Clubbing, Cyanosis, Edema Neuro Exam: Positive: Normal Speech, Normal Tone (3/5 in right lower ex, 5/5 int eh left lower ex, 5/5 int he left upper ex, 3/5 inthe right upper extremity.) Psych Exam: Positive: Memory Intact, Oriented x 3 Assessment /Plan Assessment 60-year-old male with them, history of alcohol abuse and tobacco abuse, p resented to the emergency room with persistent right-sided weakness which started on July 19 about 4 PM associated with the numbness and the right angle of the mouth and also headache. Patient reports that initially at about 4 PM both his right and left lower extremities suddenly became very weak and he could not stand up or walk. The left weakness lasted for about 5 minutes, but the right leg weakness lasted for about an hour, then it got a little better. However, the right leg weakness came back at about 9 PM this time associated with headache and right upper extremity weakness and numbness of the right angle of the mouth. He also complained of persistent headache. He was admitted for evaluation of Cerebrovascular accident vs complicated migraine. MRI of brain showed acute left basal ganglia and left henderson radiata infarct. Left sided acute cerebral infarction with right hemiparesis. Multiple areas affected. the left basal ganglia and henderson radiata and left frontal lobe, Also has chronic lacunar infarcts on the right cerebrum. Diffuse chronic small vessel ischemic disease. 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 Collateral vessels are identified adjacent to the region of the M1 segment. Severe stenoses of M1 and M2 segments of the left middle cerebral artery, with near occlusion. Severe stenosis of the distal left vertebral artery. Bilateral P CA stenoses. Will allow for permissive hypertension Hold valsartan PT/OT/Swallow eval Repeat CT scan on 07/21/20 did not show any hemorrhagic conversion. Persistent and recurrent headaches Could be migraine vs ischemia tylenol. History of intermittent bilateral leg weakness MRI of cervical spine some cervical degenerative disc disease. Hypertriglyceridemia Started on atorvastatin Alcohol abuse Will watch for alcohol withdrawal counselled about quitting drinking. Tobacco Abuse Nicotine patch counselled about quitting smoking. Plan/VTE VTE Prophylaxis Ordered?: Yes VS, I&O, 24H, Fishbone Vital Signs/I&O Vital Signs Date Time Temp Pulse Resp B/P (MAP) Pulse Ox O2 Delivery O2 Flow Rate FiO2 07/21/20 08:00 96.9 58 18 146/86 (106) Room Air 07/21/20 04:00 93 I&O- Last 24 Hours up to 6 AM 07/21/20 06:00 Intake Total 470 ml Output Total 400 ml Balance 70 ml Laboratory Data 24H LABS Laboratory Tests 2 07/20/20 12:04: Nucleated Red Blood Cells % (auto) 0.0, Anion Gap 5L, Glomerular Filtration Rate > 60.0, Calcium Level 9.1, Total Creatine Kinase 112, Creatine Kinase MB < 1.0, Creatine Kinase MB Relative Index 0.89, Troponin I < 0.02 07/21/20 05:26: Nucleated Red Blood Cells % (auto) 0.0, Anion Gap 4L, Glomerular Filtration Rate > 60.0, Calcium Level 8.5L, Immature Granulocyte % (Auto) 0.8, Neutrophils (%) (Auto) 51.1, Lymphocytes (%) (Auto) 32.4, Monocytes (%) (Auto) 10.4H, Eosinophils (%) (Auto) 4.6H, Basophils (%) (Auto) 0.7, Neutrophils # (Auto) 3.6, Lymphocytes # (Auto) 2.3, Monocytes # (Auto) 0.7, Eosinophils # (Auto) 0.3, Basophils # (Auto) 0.1, Triglycerides Level 196H, Total Cholesterol 191, LDL Cholesterol 110H, Non-HDL Cholesterol (LDL + VLDL) 149, Total HDL Cholesterol 42, Cholesterol/HDL Ratio 4.547 CBC/BMP Laboratory Tests 07/20/20 12:04 07/21/20 05:26 Microbiology Microbiology 07/20/20 Respiratory Virus Panel (PCR) ([facility]) - Final, Complete SHAMIR MOROCHO MD July 21, 2020 10:51
[2020-07-21 12:00] VITALS: BP 140/76
[2020-07-21 16:00] VITALS: BP 136/80
--- NOTE | 2020-07-21 18:39 | REP ---
INDICATION: stroke COMPARISON: None. TECHNIQUE: Real-time ultrasound evaluation and duplex Doppler interrogation of the extracranial carotid vasculature is performed. FINDINGS: There is mild to moderate plaquing and narrowing in both carotid bulbs extending into the internal and external carotid arteries. Luminal narrowing is less than 50%. There is no evidence of hemodynamically significant stenosis of either internal carotid artery. Normal flow velocities are seen. The vertebral arteries demonstrate normal direction of flow. RIGHT LEFT Peak systolic velocity ICA 75.6 cm/s 89.4 cm/s End diastolic velocity ICA 33.0 cm/s 39.8 cm/s Peak systolic velocity CCA 112 cm/s 106cm/s Peak systolic velocity ECA 140 cm/s 127 cm/s ICA/CCA ratio 0.68 0.84 IMPRESSION: Bilateral luminal narrowing of the internal carotid arteries less than 50%. No evidence of hemodynamically significant stenosis. <Electronically signed by Jair Escobar > 07/21/20 1381
[2020-07-21 20:25] VITALS: BP 160/86
[2020-07-21] MEDS: ATORVASTATIN 20 MG TAB PO SCH (21:39)
[2020-07-22 00:30] VITALS: BP 170/84
[2020-07-22 04:15] VITALS: BP 149/80
[2020-07-22 05:20] LABS: BASO # 0.1 10^3/uL (0.0-0.2); BASO % 0.7 % (0.0-1.0); EOS # 0.4 10^3/uL (0.0-0.5); EOS % 4.9 % (0.0-3.0); HEMATOCRIT 46.2 % (42.0-52.0); HEMOGLOBIN 15.7 g/dl (13.5-17.5); LYMPH # 2.1 10^3/uL (1.5-5.0); LYMPH % 28.1 % (24.0-44.0); MEAN CORPUSCULAR HEMOGLOBIN 32.1 pg (27.0-33.0); MEAN CORPUSCULAR VOLUME 94.5 fl (80.0-96.0); MONO # 0.8 10^3/uL (0.0-0.8); MONO % 10.1 % (2.0-8.0); NEUTROPHILS # 4.1 10^3/uL (1.5-8.5); NEUTROPHILS % 55.5 % (36.0-66.0); PLATELET COUNT, AUTOMATED 183 10^3/uL (150-450); RED BLOOD COUNT 4.89 10^6/uL (4.30-6.10); WHITE BLOOD COUNT 7.4 10^3/uL (4.0-10.0)
[2020-07-22 05:57] LABS: BLOOD UREA NITROGEN 16 MG/DL (7-18); CALCIUM LEVEL 8.2 MG/DL (8.8-10.2); CARBON DIOXIDE LEVEL 27 MEQ/L (21-32); CHLORIDE LEVEL 111 MEQ/L (98-107); CREATININE FOR GFR 0.82 MG/DL (0.70-1.30); GLOMERULAR FILTRATION RATE > 60.0 (>49); GLUCOSE, FASTING 97 MG/DL (70-100); SODIUM LEVEL 143 MEQ/L (136-145)
[2020-07-22 07:27] VITALS: BP 149/89
[2020-07-22] MEDS: DOCUSATE SODIUM 100MG CAPSULE PO SCH (09:14)
[2020-07-22] MEDS: ASPIRIN 81MG ENTERIC TABLET PO SCH (09:14)
[2020-07-22] MEDS ORDERED: CLOPIDOGREL 75 MG TAB PO ONE (12:00)
[2020-07-22] MEDS ORDERED: ATOR1TAB21 PO (12:03)
[2020-07-22] MEDS ORDERED: ASPI-551 PO (12:03)
[2020-07-22] MEDS ORDERED: AMLO1TAB24 PO (12:03)
[2020-07-22] MEDS ORDERED: PLAV1TAB2 PO (12:03)
--- NOTE | 2020-07-22 13:53 | DS.PDOC ---
Discharge Summary General Date of Admission July 21, 2020 at 16:48 Date of Discharge 07/22/20 Discharge Summary PROCEDURES PERFORMED DURING STAY: [None]. DISCHARGE DIAGNOSES: Left sided acute cerebral infarction with right hemiparesis. Chronic lacunar infarcts bilaterally HTN HLD Tobacco and alcohol abuse. COMPLICATIONS/CHIEF COMPLAINT: Neurological Deficit Present. HOSPITAL COURSE: 60-year-old male with them, history of alcohol abuse and tobacco abuse, presented to the emergency room with persistent right-sided weakness which started on July 19 about 4 PM associated with the numbness and the right angle of the mouth and also headache. Patient reports that initially at about 4 PM both his right and left lower extremities suddenly became very weak and he could not stand up or walk. The left weakness lasted for about 5 minutes, but the right leg weakness lasted for about an hour, then it got a little better. However, the right leg weakness came back at about 9 PM this time associated with headache and right upper extremity weakness and numbness of the right angle of the mouth. He also complained of persistent headache. He was admitted for evaluation of Cerebrovascular accident vs complicated migraine. MRI of brain showed acute left basal ganglia and left henderson radiata infarct. Left sided acute cerebral infarction with right hemiparesis. Multiple areas affected. the left basal ganglia and henderson radiata and left frontal lobe, Also has chronic lacunar infarcts on the right cerebrum. Diffuse chronic small vessel ischemic disease. 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 Collateral vessels are identified adjacent to the region of the M1 segment. Severe stenoses of M1 and M2 segments of the left middle cerebral artery, with near occlusion. Severe stenosis of the distal left vertebral artery. Bilateral [employer] stenoses. Repeat CT scan on 07/21/20 did not show any hemorrhagic conversion. Telemetry showed sinus bradycardia going as low as 35 when asleep , no pauses noted in 72 hours. No cardiac arrhythmias noted. Carotid US bilateral < 50% stenosis. Will allow BP in the 140 to 160 range. Will not aim for tight control of BP due to his multiple high grades stenoses in the intracranial arteries. PT/OT/Swallow eval completed. PT/OT recommended outpatient PT to continue Follow up with Dr Giang Persistent and recurrent headaches Could be migraine vs ischemia tylenol. History of intermittent bilateral leg weakness MRI of cervical spine some cervical degenerative disc disease. Has multiple bilateral chronic lacunar infarcts. Hypertriglyceridemia Started on atorvastatin Alcohol abuse No withdrawal in hospital counselled about quitting drinking. Tobacco Abuse Nicotine patch counselled about quitting smoking. DISCHARGE MEDICATIONS: Please see below. ALLERGIES: Please see below. PHYSICAL EXAMINATION ON DISCHARGE: VITAL SIGNS: Please see below. General Exam: Positive: Alert, Cooperative, No Acute Distress Eye Exam: Positive: PERRLA, Conjunctiva & lids normal, EOMI; Negative: Sclera icteric Neck Exam: Positive: Supple; Negative: JVD, thyromegaly Chest Exam: Positive: Clear to auscultation, Normal air movement Heart Exam: Positive: Bradycardic, Regular Rhythm, Normal S1, Normal S2; Negative: Murmurs, Rubs Telemetry: Positive: Sinus, Bradycardia Abdomen Exam: Positive: Normal bowel sounds, Soft; Negative: Tenderness, Hepatosplenomegaly Extremity Exam: Negative: Clubbing, Cyanosis, Edema Neuro Exam: Positive: Normal Speech, Normal Tone (4/5 in right lower ex, 5/5 in the left lower ex, 5/5 in the left upper ex, 4/5 in the right upper extremity.) Psych Exam: Positive: Memory Intact, Oriented x 3 LABORATORY DATA: Please see below. ACTIVITY: [As tolerated]. DIET: As tolerated DISCHARGE PLAN: Home DISCHARGE INSTRUCTIONS: PMD in [address] Giang in 2 to 3 weeks Follow up Echo results. DISCHARGE CONDITION: [Stable]. TIME SPENT ON DISCHARGE: 35 minutes. Vital Signs/I&Os Vital Signs Date Time Temp Pulse Resp B/P (MAP) Pulse Ox O2 Delivery O2 Flow Rate FiO2 07/22/20 07:27 97.6 64 18 149/89 (109) 95 Room Air I&O- Last 24 Hours up to 6 AM 07/22/20 06:00 Intake Total 720 ml Output Total 400 ml Balance 320 ml Laboratory Data Labs 24H Laboratory Tests 2 07/22/20 05:03: Immature Granulocyte % (Auto) 0.7, Neutrophils (%) (Auto) 55.5, Lymphocytes (%) (Auto) 28.1, Monocytes (%) (Auto) 10.1H, Eosinophils (%) (Auto) 4.9H, Basophils (%) (Auto) 0.7, Neutrophils # (Auto) 4.1, Lymphocytes # (Auto) 2.1, Monocytes # (Auto) 0.8, Eosinophils # (Auto) 0.4, Basophils # (Auto) 0.1, Nucleated Red Blood Cells % (auto) 0.0, Anion Gap 5L, Glomerular Filtration Rate > 60.0, Calcium Level 8.2L CBC/BMP Laboratory Tests 07/22/20 05:03 Microbiology Microbiology 07/20/20 Respiratory Virus Panel (PCR) ([facility]) - Final, Complete Discharge Medications Scheduled Amlodipine Besylate (Amlodipine Besylate) 5 Mg Tablet, 5 MG PO DAILY Aspirin (Aspirin EC) 81 Mg Tablet.dr, 81 MG PO DAILY Atorvastatin Calcium (Atorvastatin Calcium) 20 Mg Tablet, 40 MG PO QHS Clopidogrel Bisulfate (Plavix) 75 Mg Tablet, 75 MG PO DAILY Allergies Coded Allergies: No Known Allergies (Unverified , 05/26/19) SHAMIR MOROCHO MD July 22, 2020 13:53
--- NOTE | 2020-07-26 07:39 | ECHO ---
DATE OF PROCEDURE: 07/21/2020 Age: 60 Gender: Male REFERRING PHYSICIAN: Trina Perez MD. PATIENT LOCATION: Room 3220. REASON FOR STUDY: Cerebrovascular accident (CVA) . 2D MEASUREMENTS: IVS 1.4 cm LV 4.5 cm LA 3.8 cm Aorta 3.5 cm IVC 1.6 cm DOPPLER MEASUREMENT Peak velocity across the aortic valve 1.4 m/s Peak velocity across the LVOT 1.1 m/s Mitral E 0.70 Mitral A 0.53 with a ratio of 1.3 2D COMMENTS: 1. Mildly increased left ventricular wall thickness with normal left ventricular size and a normal global left ventricular systolic function. The estimated left ventricular systolic function is 60% to 65%. Normal left atrium. Normal right atrium and right ventricle. The atrial septum appeared to be normal without evidence of defect or shunt. 2. Normal aortic root. 3. No pericardial effusion seen. 4. Minimally calcified aortic valve with normal leaflet excursion. Normal mitral valve, tricuspid valve, and pulmonic valve. The proximal pulmonary artery branches were not well visualized. 5. The inferior vena cava was normal in size, central venous pressure is most likely normal. 6. Bubble study done with agitated normal saline was negative for passage of bubbles from the right heart chambers to the left heart chambers. DOPPLER: Detects trace mitral regurgitation. Assessment of the left ventricular diastolic function appeared to be normal. IMPRESSION: 1. Normal global left ventricular systolic function with concentric left ventricular hypertrophy. Assessment of the left ventricular diastolic function appeared to be normal. 2. Aortic valve sclerosis without stenosis or aortic regurgitation. 3. Trace mitral regurgitation. 4. Negative bubble study for intracardiac shunt. [facility]
== END 2020-07-22 14:30 | disposition home or self-care (01) | DRG 45 ==
LOC: M ED 10:42 → M ED INP 14:33 → UNDOADMOB 14:33 → ENRESERV 14:56 → M ED INP 15:40 → M PCU 15:40 → OBSVTOIN 07-21 16:48 → INTOOBSV 07-21 16:48 → UNDODISIN 07-22 14:30
PROVIDERS: ADMIT Internal Medicine Nephrology; ATTEND Internal Medicine Nephrology
DX: I63.9 Cerebral infarction, unspecified (principal); I10 Essential (primary) hypertension; F10.10 Alcohol abuse, uncomplicated; F17.200 Nicotine dependence, unspecified, uncomplicated; E78.1 Pure hyperglyceridemia; Z79.82 Long term (current) use of aspirin; Z79.899 Other long term (current) drug therapy

== ENCOUNTER → 2020-07-27 | Outpatient (CLI) | payer OTHER ==
[~2020-07-27] MED LIST changes: +AMLO1TAB24 PO; +ASPI-551 PO; +ATOR1TAB21 PO; +PLAV1TAB2 PO; +VALS40TA9 PO
--- NOTE | 2020-07-27 09:53 | REP ---
INDICATION: LUNG NODULE COMPARISON: 09/16/2018 TECHNIQUE: Axial noncontrast images from the thoracic inlet to the upper abdomen using low-dose lung screening technique (LDCT). FINDINGS: Lung haynes are relatively stable with minimal chronic changes including small 2 mm perifissural density along the left major fissure and small 2 mm subpleural density along the posterior right lower lobe. No acute consolidation, new significant nodule, or mass. No effusion. No pneumothorax. Tracheobronchial tree is patent. New area of linear scarring in the right middle lobe noted. IMPRESSION: Lung-RADS category 2 Management recommendations include annual low-dose CT surveillance. <Electronically signed by Emigdio Galo > 07/27/20 [id number]
== END ==
LOC: M RAD 09:35
PROVIDERS: ATTEND Nurse Practitioner Adult Health
DX: Z12.2 Encounter for screening for malignant neoplasm of respiratory organs (principal); R91.8 Other nonspecific abnormal finding of lung field; J98.4 Other disorders of lung; F17.210 Nicotine dependence, cigarettes, uncomplicated

== ENCOUNTER 2021-01-06 19:23 | Emergency (ER) | payer OTHER ==
[~2021-01-06] VITALS: Ht 177.8 cm; Wt 103.9 kg
[2021-01-06 19:25] VITALS: BP 161/84
== END 2021-01-06 21:46 | disposition left against medical advice (07) ==
LOC: M ED 19:23
DX: Z53.21 Procedure and treatment not carried out due to patient leaving prior to being seen by health care provider (principal)

== ENCOUNTER → 2021-01-07 | Outpatient (CLI) | payer OTHER ==
[2021-01-07 14:43] LABS: HEMATOCRIT 45.2 % (42.0-52.0); HEMOGLOBIN 15.7 g/dl (13.5-17.5); MEAN CORPUSCULAR HGB CONC 34.7 g/dl (32.0-36.5); MEAN CORPUSCULAR VOLUME 92.2 fl (80.0-96.0); PLATELET COUNT, AUTOMATED 238 10^3/uL (150-450); WHITE BLOOD COUNT 11.7 10^3/uL (4.0-10.0)
[2021-01-07 15:24] LABS: ALBUMIN 3.8 GM/DL (3.2-5.2); BILIRUBIN,TOTAL 1.1 MG/DL (0.2-1.0); CALCIUM LEVEL 9.1 MG/DL (8.8-10.2); CHOLESTEROL RISK RATIO 2.533 (<5); CREATININE FOR GFR 1.54 MG/DL (0.70-1.30); GLOMERULAR FILTRATION RATE 49.3 (>49); POTASSIUM SERUM 4.2 MEQ/L (3.5-5.1); THYROID STIMULATING HORMONE 1.66 uIU/ML (0.358-3.740); TOTAL PROTEIN 7.3 GM/DL (6.4-8.2)
[2021-01-07 17:34] LABS: HEMOGLOBIN A1c 5.1 %
== END ==
LOC: M PLALAB 12:08
PROVIDERS: ATTEND Nurse Practitioner Adult Health
DX: Z00.00 Encounter for general adult medical examination without abnormal findings (principal)

== ENCOUNTER → 2021-06-14 | Outpatient (CLI) | payer OTHER | LOC: M PLAIMG 11:33 | PROVIDERS: ATTEND Nurse Practitioner Adult Health | DX: M54.50 Low back pain, unspecified (principal) ==

== ENCOUNTER → 2021-06-21 | Outpatient (CLI) | payer OTHER ==
[2021-06-21 15:44] LABS: ALT/SGPT 28 U/L (12-78); BILIRUBIN,TOTAL 0.6 MG/DL (0.2-1.0); BLOOD UREA NITROGEN 19 MG/DL (7-18); CALCIUM LEVEL 9.2 MG/DL (8.8-10.2); CARBON DIOXIDE LEVEL 27 MEQ/L (21-32); CHLORIDE LEVEL 110 MEQ/L (98-107); CHOLESTEROL LEVEL 150 MG/DL (<200); CREATININE FOR GFR 0.95 MG/DL (0.70-1.30); GLOMERULAR FILTRATION RATE > 60.0 (>49); GLUCOSE, FASTING 93 MG/DL (70-100); HDL CHOLESTEROL 63 MG/DL (>40); LDL CHOLESTEROL 67 MG/DL (<100); NON-HDL-C 87 MG/DL; SODIUM LEVEL 143 MEQ/L (136-145); TOTAL PROTEIN 7.4 GM/DL (6.4-8.2); TRIGLYCERIDES LEVEL 101 MG/DL (<150)
[2021-06-21 15:55] LABS: HEMOGLOBIN A1c 5.3 %
== END ==
LOC: M PLALAB 13:09
PROVIDERS: ATTEND Nurse Practitioner Adult Health
DX: Z13.1 Encounter for screening for diabetes mellitus (principal); I10 Essential (primary) hypertension; E78.5 Hyperlipidemia, unspecified

== ENCOUNTER → 2021-06-21 | Outpatient (REF) | payer OTHER ==
[2021-06-21 17:52] LABS: APPEARANCE, URINE CLEAR (CLEAR); BACTERIA, URINE AUTO NEGATIVE (NEGATIVE); BILIRUBIN, URINE AUTO NEGATIVE (NEGATIVE); BLOOD, URINE BLOOD NEGATIVE (NEGATIVE); COLOR, URINE YELLOW (YELLOW); GLUCOSE, URINE (UA) AUTO NEGATIVE (NEGATIVE); KETONE, URINE AUTO NEGATIVE (NEGATIVE); LEUKOCYTE ESTERASE, URINE AUTO NEGATIVE (NEGATIVE); NITRITE, URINE AUTO NEGATIVE (NEGATIVE); PROTEIN, URINE AUTO NEGATIVE (NEGATIVE); RBC, URINE AUTO 0 /HPF (0-3); SPECIFIC GRAVITY URINE AUTO 1.018 (1.002-1.035); SQUAMOUS EPITHELIAL CELL UR AU 0 /HPF (0-6); WBC, URINE AUTO 0 /HPF (0-3)
== END ==
LOC: M SMT 16:34
PROVIDERS: ATTEND Urology
DX: R39.9 Unspecified symptoms and signs involving the genitourinary system (principal)

== ENCOUNTER → 2021-12-21 | Outpatient (CLI) | payer OTHER ==
[2021-12-21 14:40] LABS: ALT/SGPT 30 U/L (12-78); BILIRUBIN,TOTAL 0.9 MG/DL (0.2-1.0); BLOOD UREA NITROGEN 16 MG/DL (7-18); CALCIUM LEVEL 9.3 MG/DL (8.8-10.2); CARBON DIOXIDE LEVEL 28 MEQ/L (21-32); CHLORIDE LEVEL 107 MEQ/L (98-107); CHOLESTEROL LEVEL 162 MG/DL (<200); CREATININE FOR GFR 0.98 MG/DL (0.70-1.30); GLOMERULAR FILTRATION RATE > 60.0 (>49); GLUCOSE, FASTING 106 MG/DL (70-100); HDL CHOLESTEROL 60 MG/DL (>40); LDL CHOLESTEROL 64 MG/DL (<100); NON-HDL-C 102 MG/DL; POTASSIUM SERUM 4.4 MEQ/L (3.5-5.1); SODIUM LEVEL 139 MEQ/L (136-145); TOTAL PROTEIN 7.5 GM/DL (6.4-8.2); TRIGLYCERIDES LEVEL 191 MG/DL (<150)
== END ==
LOC: M LABDRWAD 09:30
PROVIDERS: ATTEND Nurse Practitioner Adult Health
DX: E78.2 Mixed hyperlipidemia (principal)

== ENCOUNTER → 2022-01-19 | Outpatient (CLI) | payer OTHER ==
[~2022-01-19] MED LIST changes: +CLOP75TA99 PO; -PLAV1TAB2 PO
[2022-01-19 14:54] LABS: BASO % 0.6 % (0.0-1.0); EOS # 0.2 10^3/uL (0.0-0.5); EOS % 2.9 % (0.0-3.0); HEMATOCRIT 48.8 % (42.0-52.0); HEMOGLOBIN 16.5 g/dl (13.5-17.5); LYMPH # 1.6 10^3/uL (1.5-5.0); LYMPH % 23.2 % (24.0-44.0); MEAN CORPUSCULAR HGB CONC 33.8 g/dl (32.0-36.5); MEAN CORPUSCULAR VOLUME 91.7 fl (80.0-96.0); MONO # 1.3 10^3/uL (0.0-0.8); MONO % 19.3 % (2.0-8.0); NEUTROPHILS # 3.6 10^3/uL (1.5-8.5); NEUTROPHILS % 53.3 % (36.0-66.0); PLATELET COUNT, AUTOMATED 242 10^3/uL (150-450); RED BLOOD COUNT 5.32 10^6/uL (4.30-6.10); WHITE BLOOD COUNT 6.8 10^3/uL (4.0-10.0)
[2022-01-19 17:33] LABS: ALBUMIN 4.1 G/DL (3.2-5.2); ALT/SGPT 35 U/L (7.0-40); BILIRUBIN,TOTAL 0.7 MG/DL (0.3-1.2); BLOOD UREA NITROGEN 21 MG/DL (9-23); CALCIUM LEVEL 9.3 MG/DL (8.3-10.6); CARBON DIOXIDE LEVEL 26 MMOL/L (20-31); CHLORIDE LEVEL 100 MMOL/L (98-107); CREATININE FOR GFR 0.77 MG/DL (0.70-1.30); GLOMERULAR FILTRATION RATE > 60.0 (>49); GLUCOSE, FASTING 137 MG/DL (74-106); POTASSIUM SERUM 3.9 MMOL/L (3.5-5.1); SODIUM LEVEL 138 MMOL/L (136-145); TOTAL PROTEIN 7.3 G/DL (5.7-8.2); VITAMIN B12 LEVEL 395 PG/ML (211-911)
[2022-01-19 19:08] LABS: THYROID STIMULATING HORMONE 2.344 uIU/ML (0.55-4.78)
[2022-01-19 19:33] LABS: FOLATE > 24.0 NG/ML (>5.4)
[2022-01-27 14:10] LABS: VITAMIN B1 LEVEL WHOLE BLOOD 212.2 nmol/L (66.5-200.0); VITAMIN E(ALPHA TOCOPHEROL) 7.1 mg/L (9.0-29.0); VITAMIN E(GAMMA TOCOPHEROL) 0.8 mg/L (0.5-4.9)
== END ==
LOC: M LABDRWAD 09:03
PROVIDERS: ATTEND Psychiatry & Neurology Neurology
DX: E03.9 Hypothyroidism, unspecified (principal); R41.3 Other amnesia; I63.9 Cerebral infarction, unspecified

== ENCOUNTER → 2022-03-02 | Outpatient (REF) | payer OTHER | LOC: M LAB REF 02-15 17:03 → M LABDRWAD 14:34 | PROVIDERS: ATTEND Psychiatry & Neurology Neurology | DX: R41.3 Other amnesia (principal); E03.9 Hypothyroidism, unspecified; H81.90 Unspecified disorder of vestibular function, unspecified ear ==

== ENCOUNTER → 2022-05-09 | Outpatient (CLI) | payer OTHER | LOC: M RAD 11:59 | PROVIDERS: ATTEND Nurse Practitioner Adult Health | DX: R91.1 Solitary pulmonary nodule (principal); F17.210 Nicotine dependence, cigarettes, uncomplicated ==

== ENCOUNTER → 2022-05-22 | Outpatient (REF) | payer OTHER ==
[2022-05-22 18:20] LABS: BASO # 0.1 10^3/uL (0.0-0.2); BASO % 0.6 % (0.0-1.0); EOS # 0.6 10^3/uL (0.0-0.5); EOS % 6.3 % (0.0-3.0); HEMATOCRIT 47.8 % (42.0-52.0); HEMOGLOBIN 16.2 g/dl (13.5-17.5); LYMPH # 2.9 10^3/uL (1.5-5.0); LYMPH % 32.3 % (24.0-44.0); MEAN CORPUSCULAR HEMOGLOBIN 31.1 pg (27.0-33.0); MEAN CORPUSCULAR HGB CONC 33.9 g/dl (32.0-36.5); MEAN CORPUSCULAR VOLUME 91.7 fl (80.0-96.0); MONO % 11.4 % (2.0-8.0); NEUTROPHILS # 4.4 10^3/uL (1.5-8.5); NEUTROPHILS % 48.8 % (36.0-66.0); PLATELET COUNT, AUTOMATED 283 10^3/uL (150-450); RED BLOOD COUNT 5.21 10^6/uL (4.30-6.10)
[2022-05-22 18:35] LABS: INR 0.91; PROTHROMBIN TIME 12.4 SECONDS (12.5-14.5)
[2022-05-22 18:36] LABS: PARTIAL THROMBOPLASTIN TIME 28.1 SECONDS (24.8-34.2)
[2022-05-22 18:54] LABS: ALKALINE PHOSPHATASE 59 U/L (46-116); ALT/SGPT 20 U/L (7.0-40); AST/SGOT 16 U/L (<34); BILIRUBIN,TOTAL 0.6 MG/DL (0.3-1.2); BLOOD UREA NITROGEN 19 MG/DL (9-23); CALCIUM LEVEL 8.9 MG/DL (8.3-10.6); CARBON DIOXIDE LEVEL 29 MMOL/L (20-31); CHLORIDE LEVEL 108 MMOL/L (98-107); CHOLESTEROL LEVEL 159 MG/DL (<200); CHOLESTEROL RISK RATIO 2.96 (<5); CREATININE FOR GFR 0.94 MG/DL (0.70-1.30); GLOMERULAR FILTRATION RATE > 60.0 (>49); GLUCOSE, FASTING 77 MG/DL (74-106); HDL CHOLESTEROL 53.6 MG/DL (>40); HEMOGLOBIN A1c 5.4 % (4.0-6.0); LDL CHOLESTEROL 77.8 MG/DL (<100); NON-HDL-C 105.4 MG/DL; POTASSIUM SERUM 4.8 MMOL/L (3.5-5.1); SODIUM LEVEL 142 MMOL/L (136-145); TOTAL PROTEIN 7.2 G/DL (5.7-8.2); TRIGLYCERIDES LEVEL 138 MG/DL (<150)
== END ==
LOC: M SFHCPLAZ 17:40
PROVIDERS: ATTEND Family Medicine
DX: I63.9 Cerebral infarction, unspecified (principal)

== ENCOUNTER → 2022-12-26 | Outpatient (CLI) | payer OTHER ==
[2022-12-26 14:06] LABS: HEMATOCRIT 47.3 % (42.0-52.0); HEMOGLOBIN 15.9 g/dl (13.5-17.5); MEAN CORPUSCULAR HEMOGLOBIN 31.4 pg (27.0-33.0); MEAN CORPUSCULAR HGB CONC 33.6 g/dl (32.0-36.5); MEAN CORPUSCULAR VOLUME 93.3 fl (80.0-96.0); PLATELET COUNT, AUTOMATED 260 10^3/uL (150-450); RED BLOOD COUNT 5.07 10^6/uL (4.30-6.10); WHITE BLOOD COUNT 9.2 10^3/uL (4.0-10.0)
[2022-12-26 14:10] LABS: HEMOGLOBIN A1c 4.7 % (4.0-6.0)
[2022-12-26 14:26] LABS: ALBUMIN 3.9 G/DL (3.2-5.2); ALKALINE PHOSPHATASE 55 U/L (46-116); ALT/SGPT 19 U/L (7.0-40); AST/SGOT 12 U/L (<34); BILIRUBIN,TOTAL 0.5 MG/DL (0.3-1.2); BLOOD UREA NITROGEN 12 MG/DL (9-23); CALCIUM LEVEL 9.3 MG/DL (8.3-10.6); CARBON DIOXIDE LEVEL 28 MMOL/L (20-31); CHLORIDE LEVEL 108 MMOL/L (98-107); CHOLESTEROL LEVEL 182 MG/DL (<200); CHOLESTEROL RISK RATIO 3.05 (<5); CREATININE FOR GFR 0.89 MG/DL (0.70-1.30); GLOMERULAR FILTRATION RATE > 60.0 (>49); GLUCOSE, FASTING 101 MG/DL (74-106); HDL CHOLESTEROL 59.6 MG/DL (>40); LDL CHOLESTEROL 87.8 MG/DL (<100); NON-HDL-C 122.4 MG/DL; POTASSIUM SERUM 5.2 MMOL/L (3.5-5.1); SODIUM LEVEL 141 MMOL/L (136-145); THYROID STIMULATING HORMONE 2.157 uIU/ML (0.55-4.78); TOTAL PROTEIN 6.8 G/DL (5.7-8.2); TRIGLYCERIDES LEVEL 173 MG/DL (<150)
== END ==
LOC: M PLALAB 11:19
PROVIDERS: ATTEND Nurse Practitioner Adult Health
DX: I63.9 Cerebral infarction, unspecified (principal); I10 Essential (primary) hypertension; J30.2 Other seasonal allergic rhinitis; E78.2 Mixed hyperlipidemia

== ENCOUNTER → 2023-04-24 | Outpatient (REF) | payer OTHER | LOC: M SFHCADAM 13:41 | PROVIDERS: ATTEND Family Medicine | DX: R05.9 Cough, unspecified (principal) ==

== ENCOUNTER → 2023-06-14 | Outpatient (CLI) | payer OTHER ==
[~2023-06-14] MED LIST changes: +ATOR80TA59 PO; +NICO21DI37 TOP; +TAMS1CAP17 PO
[2023-06-14 14:09] LABS: BASO # 0.1 10^3/uL (0.0-0.2); BASO % 0.9 % (0.0-1.0); EOS # 0.3 10^3/uL (0.0-0.5); EOS % 4.2 % (0.0-3.0); HEMATOCRIT 46.6 % (42.0-52.0); HEMOGLOBIN 15.9 g/dl (13.5-17.5); LYMPH # 1.9 10^3/uL (1.5-5.0); LYMPH % 23.8 % (24.0-44.0); MEAN CORPUSCULAR HEMOGLOBIN 31.5 pg (27.0-33.0); MEAN CORPUSCULAR HGB CONC 34.1 g/dl (32.0-36.5); MEAN CORPUSCULAR VOLUME 92.3 fl (80.0-96.0); MONO # 0.8 10^3/uL (0.0-0.8); MONO % 10.1 % (2.0-8.0); NEUTROPHILS # 4.9 10^3/uL (1.5-8.5); NEUTROPHILS % 60.6 % (36.0-66.0); PLATELET COUNT, AUTOMATED 242 10^3/uL (150-450); RED BLOOD COUNT 5.05 10^6/uL (4.30-6.10)
[2023-06-14 14:10] LABS: ALKALINE PHOSPHATASE 56 U/L (46-116); ALT/SGPT 20 U/L (7.0-40); AST/SGOT 14 U/L (<34); BILIRUBIN,TOTAL 0.8 MG/DL (0.3-1.2); BLOOD UREA NITROGEN 17 MG/DL (9-23); CARBON DIOXIDE LEVEL 28 MMOL/L (20-31); CHLORIDE LEVEL 111 MMOL/L (98-107); CHOLESTEROL LEVEL 150 MG/DL (<200); CHOLESTEROL RISK RATIO 2.59 (<5); CREATININE FOR GFR 0.81 MG/DL (0.70-1.30); GLOMERULAR FILTRATION RATE > 60.0 (>49); GLUCOSE, FASTING 107 MG/DL (74-106); HDL CHOLESTEROL 57.9 MG/DL (>40); LDL CHOLESTEROL 71.1 MG/DL (<100); NON-HDL-C 92.1 MG/DL; POTASSIUM SERUM 4.8 MMOL/L (3.5-5.1); SODIUM LEVEL 143 MMOL/L (136-145); TOTAL PROTEIN 6.9 G/DL (5.7-8.2); TRIGLYCERIDES LEVEL 105 MG/DL (<150)
[2023-06-14 14:31] LABS: HEMOGLOBIN A1c 5.1 % (4.0-6.0)
== END ==
LOC: M PLALAB 10:13
PROVIDERS: ATTEND Student in an Organized Health Care Education/Training Program
DX: I10 Essential (primary) hypertension (principal); F17.210 Nicotine dependence, cigarettes, uncomplicated

== ENCOUNTER 2023-06-21 10:04 | Day surgery (SDC) | payer OTHER ==
[~2023-06-21] VITALS: Ht 177.8 cm; Wt 102.9 kg
[~2023-06-21 10:04] MED LIST changes: +PHENYLEPHRINE 10% OPHTH SOL 5ML OD PRN
[2023-06-21] MEDS: PHENYLEPHRINE 2.5% OPHTH SOL 2ML OD SCH (10:36)
[2023-06-21] MEDS: OFLOXACIN 0.3 % (OCUFLOX) OPTH SOL 5ML OD ONE (10:36)
[2023-06-21] MEDS: LIDOCAINE 3.5 % 1ML OPHTH TOPICAL GEL OU ONE (10:36)
[2023-06-21] MEDS: ATROPINE SULFATE 1% OPHTH SOLN 2ML BTL OD SCH (10:36)
[2023-06-21] MEDS: TROPICAMIDE 1% OPHTH SOLN 15ML OD SCH (10:36)
[2023-06-21] MEDS ORDERED: MIDAZOLAM INJ 2MG/2ML VIAL As Ordered ONE (11:13)
[2023-06-21] MEDS ORDERED: fentaNYL 100 MCG/2 ML INJECTION As Ordered ONE (11:13)
[2023-06-21] MEDS: LIDOCAINE 1% SDV 5ML VIAL As Ordered ONE (11:38)
[2023-06-21] MEDS: BSS IRRIG/VANCO(10MG)/TOBRA(5MG)/EPINEPH(1:1000-0.5CC)500ML BAG-ORONLY As Ordered ONE (11:38)
[2023-06-21] MEDS: CEFUROXIME 1MG/0.1ML INTRACAMERAL INJ As Ordered ONE (11:38)
[2023-06-21 11:46] VITALS: BP 118/71; TEMP 96.8; O2SAT 96
== END 2023-06-21 12:10 | disposition home or self-care (01) ==
LOC: M SDC 10:04
PROVIDERS: ATTEND Ophthalmology
DX: H25.11 Age-related nuclear cataract, right eye (principal); I10 Essential (primary) hypertension; E78.00 Pure hypercholesterolemia, unspecified; Z79.899 Other long term (current) drug therapy; Z79.82 Long term (current) use of aspirin; Z79.02 Long term (current) use of antithrombotics/antiplatelets; F17.210 Nicotine dependence, cigarettes, uncomplicated; N40.0 Benign prostatic hyperplasia without lower urinary tract symptoms; Z86.73 Personal history of transient ischemic attack (TIA), and cerebral infarction without residual deficits
CPT/HCPCS: 66984; J0697; J2250; J3010; V2632

== ENCOUNTER 2023-07-12 07:44 | Day surgery (SDC) | payer OTHER ==
[~2023-07-12] VITALS: Ht 177.8 cm; Wt 104.8 kg
[~2023-07-12 07:44] MED LIST changes: -PHENYLEPHRINE 10% OPHTH SOL 5ML OD PRN; +TROPICAMIDE 1% OPHTH SOLN 15ML OS SCH
[2023-07-12] MEDS: PHENYLEPHRINE 10% OPHTH SOL 5ML OS PRN (08:00)
[2023-07-12] MEDS: PHENYLEPHRINE 2.5% OPHTH SOL 2ML OS SCH (08:13)
[2023-07-12] MEDS: LIDOCAINE 3.5 % 1ML OPHTH TOPICAL GEL OU ONE (08:13)
[2023-07-12] MEDS: ATROPINE SULFATE 1% OPHTH SOLN 2ML BTL OS SCH (08:13)
[2023-07-12] MEDS: OFLOXACIN 0.3 % (OCUFLOX) OPTH SOL 5ML OS ONE (08:13)
[2023-07-12] MEDS ORDERED: MIDAZOLAM INJ 2MG/2ML VIAL As Ordered ONE (10:01)
[2023-07-12] MEDS ORDERED: fentaNYL 100 MCG/2 ML INJECTION As Ordered ONE (10:01)
[2023-07-12] MEDS: LIDOCAINE 1% SDV 5ML VIAL As Ordered ONE (10:21)
[2023-07-12] MEDS: CEFUROXIME 1MG/0.1ML INTRACAMERAL INJ As Ordered ONE (10:21)
[2023-07-12] MEDS: BSS IRRIG/VANCO(10MG)/TOBRA(5MG)/EPINEPH(1:1000-0.5CC)500ML BAG-ORONLY As Ordered ONE (10:22)
[2023-07-12] MEDS: POVIDONE-IODINE 5% OPHTH PREP SOL 30ML As Ordered ONE (10:22)
[2023-07-12 11:26] VITALS: BP 133/81; TEMP 97; O2SAT 98
== END 2023-07-12 11:26 | disposition home or self-care (01) ==
LOC: M SDC 07:44
PROVIDERS: ATTEND Ophthalmology
DX: H25.12 Age-related nuclear cataract, left eye (principal); I10 Essential (primary) hypertension; E78.5 Hyperlipidemia, unspecified; Z86.73 Personal history of transient ischemic attack (TIA), and cerebral infarction without residual deficits; Z79.02 Long term (current) use of antithrombotics/antiplatelets; Z79.82 Long term (current) use of aspirin; Z79.899 Other long term (current) drug therapy; N40.0 Benign prostatic hyperplasia without lower urinary tract symptoms
CPT/HCPCS: 66984; J0697; J2250; J3010; V2632

== ENCOUNTER → 2023-10-04 | Outpatient (REF) | payer OTHER ==
[~2023-10-04] MED LIST changes: -TROPICAMIDE 1% OPHTH SOLN 15ML OS SCH
== END ==
LOC: M LABSMT 10:33
PROVIDERS: ATTEND Urology
DX: Z12.5 Encounter for screening for malignant neoplasm of prostate (principal); Z53.8 Procedure and treatment not carried out for other reasons

== ENCOUNTER → 2023-10-16 | Outpatient (REF) | payer OTHER | LOC: M SFHCADAM 11:21 | PROVIDERS: ATTEND Urology | DX: Z12.5 Encounter for screening for malignant neoplasm of prostate (principal) ==

== ENCOUNTER → 2023-11-09 | Outpatient (REF) | payer OTHER | LOC: M SMT 12:54 | PROVIDERS: ATTEND Urology | DX: R97.20 Elevated prostate specific antigen [PSA] (principal) ==

== ENCOUNTER → 2024-01-04 | Outpatient (CLI) | payer OTHER ==
[2024-01-04 11:20] LABS: HEMATOCRIT 45.9 % (42.0-52.0); HEMOGLOBIN 15.7 g/dl (13.5-17.5); MEAN CORPUSCULAR HEMOGLOBIN 32.2 pg (27.0-33.0); MEAN CORPUSCULAR HGB CONC 34.2 g/dl (32.0-36.5); MEAN CORPUSCULAR VOLUME 94.3 fl (80.0-96.0); PLATELET COUNT, AUTOMATED 240 10^3/uL (150-450); RED BLOOD COUNT 4.87 10^6/uL (4.30-6.10); WHITE BLOOD COUNT 8.8 10^3/uL (4.0-10.0)
[2024-01-04 11:43] LABS: ALBUMIN 3.7 G/DL (3.2-5.2); ALKALINE PHOSPHATASE 55 U/L (40-129); ALT/SGPT 25 U/L (7.0-40); AST/SGOT 15 U/L (<34); BILIRUBIN,TOTAL 0.6 MG/DL (0.3-1.2); BLOOD UREA NITROGEN 15 MG/DL (9-23); CALCIUM LEVEL 9.4 MG/DL (8.3-10.6); CARBON DIOXIDE LEVEL 26 MMOL/L (20-31); CHLORIDE LEVEL 108 MMOL/L (98-107); CHOLESTEROL LEVEL 204 MG/DL (<200); CHOLESTEROL RISK RATIO 3.08 (<5); CREATININE FOR GFR 0.85 MG/DL (0.70-1.30); GLOMERULAR FILTRATION RATE > 60.0 (>49); GLUCOSE, FASTING 81 MG/DL (74-106); HDL CHOLESTEROL 66.2 MG/DL (>40); LDL CHOLESTEROL 90.4 MG/DL (<100); MAGNESIUM LEVEL 2.1 MG/DL (1.8-2.4); NON-HDL-C 137.8 MG/DL; POTASSIUM SERUM 4.2 MMOL/L (3.5-5.1); SODIUM LEVEL 140 MMOL/L (136-145); TOTAL PROTEIN 7.3 G/DL (5.7-8.2); TRIGLYCERIDES LEVEL 237 MG/DL (<150)
[2024-01-04 11:45] LABS: FREE T4 1.09 NG/DL (0.89-1.76); THYROID STIMULATING HORMONE 1.835 uIU/ML (0.55-4.78)
== END ==
LOC: M PLALAB 08:49
PROVIDERS: ATTEND Nurse Practitioner Adult Health
DX: I63.9 Cerebral infarction, unspecified (principal); E78.2 Mixed hyperlipidemia; I10 Essential (primary) hypertension

== ENCOUNTER → 2024-02-06 | Outpatient (CLI) | payer OTHER ==
[~2024-02-06] MED LIST changes: +CLOP75TA2 PO
[2024-02-06 12:42] LABS: HEMATOCRIT 47.7 % (42.0-52.0); MEAN CORPUSCULAR HEMOGLOBIN 31.7 pg (27.0-33.0); MEAN CORPUSCULAR HGB CONC 33.5 g/dl (32.0-36.5); MEAN CORPUSCULAR VOLUME 94.5 fl (80.0-96.0); PLATELET COUNT, AUTOMATED 244 10^3/uL (150-450); RED BLOOD COUNT 5.05 10^6/uL (4.30-6.10); WHITE BLOOD COUNT 8.7 10^3/uL (4.0-10.0)
[2024-02-06 12:49] LABS: ALBUMIN 3.8 G/DL (3.2-5.2); ALKALINE PHOSPHATASE 62 U/L (40-129); ALT/SGPT 19 U/L (7.0-40); AST/SGOT 18 U/L (<34); BILIRUBIN,TOTAL 0.5 MG/DL (0.3-1.2); BLOOD UREA NITROGEN 17 MG/DL (9-23); CALCIUM LEVEL 9.8 MG/DL (8.3-10.6); CARBON DIOXIDE LEVEL 31 MMOL/L (20-31); CHLORIDE LEVEL 108 MMOL/L (98-107); CREATININE FOR GFR 0.87 MG/DL (0.70-1.30); GLOMERULAR FILTRATION RATE > 60.0 (>49); GLUCOSE, FASTING 100 MG/DL (74-106); POTASSIUM SERUM 4.7 MMOL/L (3.5-5.1); SODIUM LEVEL 142 MMOL/L (136-145); TOTAL PROTEIN 7.4 G/DL (5.7-8.2)
[2024-02-06 12:56] LABS: APPEARANCE, URINE CLEAR (CLEAR); BACTERIA, URINE AUTO NEGATIVE (NEGATIVE); BILIRUBIN, URINE AUTO NEGATIVE (NEGATIVE); BLOOD, URINE BLOOD NEGATIVE (NEGATIVE); COLOR, URINE YELLOW (YELLOW); GLUCOSE, URINE (UA) AUTO NEGATIVE (NEGATIVE); KETONE, URINE AUTO NEGATIVE (NEGATIVE); LEUKOCYTE ESTERASE, URINE AUTO NEGATIVE (NEGATIVE); MUCUS, URINE SMALL (NEGATIVE); NITRITE, URINE AUTO NEGATIVE (NEGATIVE); PROTEIN, URINE AUTO NEGATIVE (NEGATIVE); RBC, URINE AUTO 0 /HPF (0-3); SPECIFIC GRAVITY URINE AUTO 1.017 (1.002-1.035); SQUAMOUS EPITHELIAL CELL UR AU 0 /HPF (0-6); UROBILINOGEN, URINE AUTO 0.2 mg/dL (0.0-2.0); WBC, URINE AUTO 0 /HPF (0-3)
[2024-02-06 13:03] LABS: INR 0.92; PROTHROMBIN TIME 12.7 SECONDS (12.5-14.5)
== END ==
LOC: M PLALAB 09:51
PROVIDERS: ATTEND Urology
DX: C61 Malignant neoplasm of prostate (principal)

== ENCOUNTER 2024-02-14 11:01 | Day surgery (SDC) | payer OTHER ==
[~2024-02-14] VITALS: Ht 177.8 cm; Wt 103.4 kg
[2024-02-14] MEDS ORDERED: LR 1,000 ML IV SCH (11:20)
[2024-02-14] MEDS ORDERED: LIDOCAINE 2% 100MG/5ML SDV (FOR ANES.) As Ordered ONE (12:38)
[2024-02-14] MEDS ORDERED: ROCURONIUM BROMIDE 50MG/5ML VIAL As Ordered ONE (12:38)
[2024-02-14] MEDS ORDERED: GLYCOPYRROLATE INJ 0.2 MG/ML 2 ML VIAL As Ordered ONE (12:38)
[2024-02-14] MEDS ORDERED: ONDANSETRON 4MG 2ML VIAL As Ordered ONE (12:38)
[2024-02-14] MEDS ORDERED: propofoL 200 MG/20 ML VIAL As Ordered ONE (12:38)
[2024-02-14] MEDS ORDERED: MIDAZOLAM INJ 2MG/2ML VIAL As Ordered ONE (12:40)
[2024-02-14] MEDS ORDERED: fentaNYL 100 MCG/2 ML INJECTION As Ordered ONE (12:40)
[2024-02-14] MEDS ORDERED: SUGAMMADEX SODIUM 500 MG/5 ML VIAL (BRIDION) As Ordered ONE (12:42)
[2024-02-14] MEDS: ceFAZolin SOD 2 GM in IV 1 EA IV ONE (13:40)
[2024-02-14] MEDS: HEPARIN SOD (PORCINE) 5000UNITS/ML 1ML VIAL/SYRINGE As Ordered ONE (14:12)
[2024-02-14] MEDS ORDERED: HYDROmorphone HCL 2MG/ML 1ML VIAL As Ordered ONE (14:27)
[2024-02-14] MEDS ORDERED: HOME MED LIST COMPLETE! XX SCH (15:35)
[2024-02-14] MEDS ORDERED: hydrALAZINE 20MG/ML 1ML VIAL As Ordered ONE (16:10)
[2024-02-14] MEDS ORDERED: ONDANSETRON 4MG 2ML VIAL IV PRN (18:00)
[2024-02-14] MEDS ORDERED: ACETAMINOPHEN 325 MG TAB PO PRN (18:00)
[2024-02-14] MEDS: ceFAZolin 2 GM/D5W 50 ML IV BAG As Ordered ONE (18:15)
[2024-02-14] MEDS ORDERED: fentaNYL 100 MCG/2 ML INJECTION IV PRN (18:35)
[2024-02-14] MEDS: LIDOCAINE 1% SDV 30ML VIAL As Ordered ONE (18:40)
[2024-02-14] MEDS: ONDANSETRON 4MG 2ML VIAL IV PRN (19:23)
[2024-02-14 19:32] LABS: HEMATOCRIT 45.6 % (42.0-52.0); HEMOGLOBIN 15.6 g/dl (13.5-17.5); MEAN CORPUSCULAR HGB CONC 34.2 g/dl (32.0-36.5); MEAN CORPUSCULAR VOLUME 93.6 fl (80.0-96.0); PLATELET COUNT, AUTOMATED 265 10^3/uL (150-450); RED BLOOD COUNT 4.87 10^6/uL (4.30-6.10); WHITE BLOOD COUNT 16.1 10^3/uL (4.0-10.0)
[2024-02-14] MEDS: MORPHINE 2 MG/ML 1ML VIAL IV PRN (19:49)
[2024-02-14] MEDS: oxyCODONE 5MG TAB PO PRN (19:57)
[2024-02-14 20:08] LABS: BLOOD UREA NITROGEN 19 MG/DL (9-23); CALCIUM LEVEL 8.6 MG/DL (8.3-10.6); CARBON DIOXIDE LEVEL 21 MMOL/L (20-31); CHLORIDE LEVEL 111 MMOL/L (98-107); CREATININE FOR GFR 0.96 MG/DL (0.70-1.30); GLOMERULAR FILTRATION RATE > 60.0 (>49); GLUCOSE, FASTING 165 MG/DL (74-106); POTASSIUM SERUM 4.2 MMOL/L (3.5-5.1); SODIUM LEVEL 141 MMOL/L (136-145)
[2024-02-14 20:22] VITALS: BP 137/79; TEMP 97.3; O2SAT 95
[2024-02-14 20:30] VITALS: O2SAT 97
[2024-02-14 20:52] VITALS: BP 141/79; TEMP 97.5; O2SAT 94
[2024-02-14 21:22] VITALS: BP 149/91; TEMP 96.8; O2SAT 96
[2024-02-14] MEDS: DOCUSATE SODIUM 100MG CAPSULE PO SCH (21:30)
[2024-02-14] MEDS: ceFAZolin SOD 1 GM in DEXTROSE 5% (D5W) ADV/MINI-BAG 50 ML IV SCH (21:30)
[2024-02-14] MEDS: NS 500 ML IV SCH (21:31)
[2024-02-14] MEDS: PERCOCET 5MG/325MG TAB PO PRN (21:36)
[2024-02-14] MEDS: HEPARIN SOD (PORCINE) 5000UNITS/ML 1ML VIAL/SYRINGE SC SCH (21:59)
[2024-02-14 22:48] VITALS: BP 128/83; TEMP 97.5; O2SAT 95
[2024-02-14 23:29] VITALS: BP 148/86; TEMP 98.1; O2SAT 97
[2024-02-15 00:40] VITALS: BP 147/87; TEMP 98.1; O2SAT 95
[2024-02-15 01:22] VITALS: BP 131/74; TEMP 97.3; O2SAT 94
[2024-02-15] MEDS: PERCOCET 5MG/325MG TAB PO PRN (03:59)
[2024-02-15 05:34] LABS: HEMATOCRIT 43.7 % (42.0-52.0); HEMOGLOBIN 14.6 g/dl (13.5-17.5); MEAN CORPUSCULAR HEMOGLOBIN 31.9 pg (27.0-33.0); MEAN CORPUSCULAR HGB CONC 33.4 g/dl (32.0-36.5); MEAN CORPUSCULAR VOLUME 95.4 fl (80.0-96.0); PLATELET COUNT, AUTOMATED 243 10^3/uL (150-450); RED BLOOD COUNT 4.58 10^6/uL (4.30-6.10); WHITE BLOOD COUNT 12.1 10^3/uL (4.0-10.0)
[2024-02-15 05:52] VITALS: BP 135/76; TEMP 97.9; O2SAT 94
[2024-02-15 05:57] LABS: BLOOD UREA NITROGEN 16 MG/DL (9-23); CALCIUM LEVEL 8.8 MG/DL (8.3-10.6); CARBON DIOXIDE LEVEL 24 MMOL/L (20-31); CHLORIDE LEVEL 105 MMOL/L (98-107); CREATININE FOR GFR 0.86 MG/DL (0.70-1.30); GLOMERULAR FILTRATION RATE > 60.0 (>49); GLUCOSE, FASTING 139 MG/DL (74-106); POTASSIUM SERUM 4.4 MMOL/L (3.5-5.1); SODIUM LEVEL 141 MMOL/L (136-145)
[2024-02-15] MEDS: NICOTINE 21MG/24HR 1 EA TRANSDERMAL TD ONE (06:21)
[2024-02-15 08:00] VITALS: BP 138/78; TEMP 98.1; O2SAT 92
[2024-02-15] MEDS ORDERED: COLA100C5 PO (08:57)
[2024-02-15] MEDS ORDERED: CIPR-249 PO (08:57)
[2024-02-15] MEDS ORDERED: PERCOCET PO (08:57)
[2024-02-15 09:24] VITALS: BP 138/79
[2024-02-15] MEDS: amLODIPine 5 MG TAB PO SCH (09:24)
[2024-02-15] MEDS: ATORVASTATIN 20 MG TAB PO SCH (09:25)
[2024-02-15 12:00] VITALS: BP 124/67; TEMP 97.9; O2SAT 96
== END 2024-02-15 12:16 | disposition home or self-care (01) ==
LOC: M SDC 11:01 → M MSPAV 20:17 → M SDC 02-15 12:16
PROVIDERS: ATTEND Urology
DX: C61 Malignant neoplasm of prostate (principal); K66.0 Peritoneal adhesions (postprocedural) (postinfection); I10 Essential (primary) hypertension; E78.00 Pure hypercholesterolemia, unspecified; Z86.73 Personal history of transient ischemic attack (TIA), and cerebral infarction without residual deficits; Z79.899 Other long term (current) drug therapy; Z79.02 Long term (current) use of antithrombotics/antiplatelets; F17.210 Nicotine dependence, cigarettes, uncomplicated
CPT/HCPCS: 36415; 55866; 80048; 85027; 86850; 86900; 86901; 88309; J0360; J0665; J0690; J1100; J1171; J1596; J2250; J2405; J3010

== ENCOUNTER → 2024-03-21 | Outpatient (CLI) | payer OTHER ==
[~2024-03-21] MED LIST changes: +COLA100C5 PO; +PERCOCET PO
== END ==
LOC: M PLALAB 11:07
PROVIDERS: ATTEND Urology
DX: C61 Malignant neoplasm of prostate (principal)

== ENCOUNTER → 2024-11-11 | Outpatient (REF) | payer OTHER ==
[2024-11-11 13:14] LABS: PLATELET COUNT, AUTOMATED 235 10^3/uL (150-450)
[2024-11-11 13:37] LABS: ESTIMATED AVERAGE GLUCOSE 108.0 MG/DL (60-110)
[2024-11-11 13:44] LABS: MALB URINE SIEMENS < 3.0 MG/L
[2024-11-11 13:45] LABS: ALT/SGPT 15 U/L (7.0-40); AST/SGOT 17 U/L (<34); CALCIUM LEVEL 9.0 MG/DL (8.3-10.6); CARBON DIOXIDE LEVEL 30 MMOL/L (20-31); CHLORIDE LEVEL 107 MMOL/L (98-107); CHOLESTEROL LEVEL 185 MG/DL (<200); CHOLESTEROL RISK RATIO 3.51 (<5); CREATININE FOR GFR 0.88 MG/DL (0.70-1.30); GLOMERULAR FILTRATION RATE > 90.0 (>49); LDL CHOLESTEROL 75.9 MG/DL (<100); NON-HDL-C 132.3 MG/DL; POTASSIUM SERUM 4.1 MMOL/L (3.5-5.1); SODIUM LEVEL 145 MMOL/L (136-145); TRIGLYCERIDES LEVEL 282 MG/DL (<150)
[2024-11-11 13:46] LABS: CREATININE, URINE 161.3 MG/DL
== END ==
LOC: M SFHCPLAZ 09:46
PROVIDERS: ATTEND Nurse Practitioner Adult Health
DX: I63.9 Cerebral infarction, unspecified (principal); E78.2 Mixed hyperlipidemia; I10 Essential (primary) hypertension; Z68.41 Body mass index [BMI] 40.0-44.9, adult

== ENCOUNTER → 2025-01-16 | Outpatient (REF) | payer OTHER | LOC: M LABSMT 13:34 | PROVIDERS: ATTEND Urology | DX: C61 Malignant neoplasm of prostate (principal) ==

== ENCOUNTER → 2025-02-17 | Outpatient (CLI) | payer OTHER | LOC: M PLALAB 12:37 | PROVIDERS: ATTEND Urology | DX: C61 Malignant neoplasm of prostate (principal) ==